=== PATIENT | male | born 1970 | race Caucasian/White ===

== ENCOUNTER 2021-03-04 08:59 | Emergency (ER) | payer MEDICARE, OTHER ==
[~2021-03-04] VITALS: Ht 172 cm; Wt 90.7 kg
[2021-03-04 09:10] VITALS: BP_SYST 93
--- NOTE | 2021-03-04 09:28 | ED Lower Extremity ---
General Chief Complaint: Lower Extremity Stated Complaint: L LEG PAIN Nursing Triage Note: ARRIVED VIA AMB TO ROOM 08. COMPLAINS OF RIGHT LOWER LEG PAIN X3 DAYS. DENIES INJURY Nursing Sepsis Screen: No Definite Risk Source: patient Exam Limitations: no limitations History of Present Illness Date Seen by Provider: March 04, 2021 Time Seen by Provider: 09:22 Initial Comments Patient is a 50-year-old male who presents to the emergency department today with a chief complaint of left knee pain and swelling. Patient states that he has had pain for the last 3 weeks. He denies any traumas, he did not fall twist or step off a curb wrong. He states the pain is periodic and sharp in nature. He states most pronounced when he gets out of bed in the morning. He states he is taking 3 ibuprofen at night periodically for the pain but it does not help very much. He has not seen another physician for this pain. He denies any fev ers or chills. No redness. Again no discrete injuries. He is asking for a wrap for his left knee. All other review of systems reviewed and negative except as stated Onset: other Severity: mild Pain/Injury Location: left knee Modifying Factors: Worse With Movement; Improves With Rest Allergies and Home Medications Allergies Coded Allergies: haloperidol (Verified Allergy, Unknown, 03/04/21) trifluoperazine (Verified Allergy, Unknown, 03/04/21) Patient Home Medication List Home Medication List Reviewed: Yes Review of Systems Constitutional: no symptoms reported Respiratory: no symptoms reported Cardiovascular: no symptoms reported Gastrointestinal: no symptoms reported Genitourinary: no symptoms reported Musculoskeletal: joint pain (left knee), joint swelling (left knee pain) Skin: no symptoms reported All Other Systems Reviewed Negative Unless Noted: Yes Past Txpobks-Ebtpqn-Efjuxf Hx Patient Social History Alcohol Use: Denies Use Smoking Status: Current Everyday Smoker Recent Infectious Disease Expo: No Recent Hopitalizations: No Seasonal Allergies Seasonal Allergies: No Past Medical History Surgeries: Yes (HERNIA) Orthopedic Respiratory: No Cardiac: No Neurological: No Genitourinary: No Gastrointestinal: No Musculoskeletal: No Endocrine: No HEENT: No Cancer: No Psychosocial: Yes Physical Exam Vital Signs Vital Signs - First Documented 03/04/21 09:10 Temp 36.7 Pulse 94 Resp 16 B/P (MAP) 93/ Pulse Ox 96 O2 Delivery Room Air Capillary Refill : Less Than 3 Seconds Height, Weight, BMI Height: '" Weight: lbs. oz. kg; 30.00 BMI Method: General Appearance: WD/WN, no apparent distress Cardiovascular: other (Distal pulses intact) Respiratory: no respiratory distress, no accessory muscle use Hips: bilateral hip non-tender, bilateral hip normal inspection, bilateral hip normal range of motion, bilateral hip no evidence of injury Legs: bilateral leg non-tender, bilateral leg normal inspection, bilateral leg normal range of motion, bilateral leg no evidence of injury Knees: left knee pain (Mild pain noted with palpation of the medial joint line on the left knee. He has a little bit of swelling to the left knee. No appreciable effusion. No crepitance in the knee, no instability.) Ankles: bilateral ankle non-tender, bilateral ankle normal inspection, bilater al ankle normal range of motion, bilateral ankle no evidence of injury Feet: bilateral foot non-tender, bilateral foot normal inspection, bilateral foot normal range of motion, bilateral foot no evidence of injury Neurologic/Psychiatric: alert, normal mood/affect, oriented x 3 Skin: normal color, warm/dry Progress/Results/Core Measures Results/Orders Vital Signs/I&O 03/04/21 09:10 Temp 36.7 Pulse 94 Resp 16 B/P (MAP) 93/ Pulse Ox 96 O2 Delivery Room Air Progress Progress Note : Time: 09:40 Progress Note Left knee is stable, unremarkable. A little bit of left medial joint line tenderness to palpation. Patient is placed in an Gilberto wrap. He is recommended to follow-up with his primary care physician at [facility]. He is advised to take ibuprofen 3 times daily with food for the next week or so. He verbalized understanding. All questions are sought and answered. Patient is stable for discharge. Departure Impression Primary Impression: Left medial knee pain Disposition: 01 HOME, SELF-CARE Condition: Stable Departure-Patient Inst. Decision time for Depature: 09:39 Referrals: [facility] Patient Instructions: Knee Pain (DC) KEVIN ROY MD March 04, 2021 09:28
== END 2021-03-04 09:53 | disposition home or self-care (01) ==
LOC: EDUNIT# 08:59 → ER 09:02
DX: M25.562 Pain in left knee (principal); F17.200 Nicotine dependence, unspecified, uncomplicated
CPT/HCPCS: 99282

== ENCOUNTER 2021-03-08 18:39 | Emergency (ER) | payer MEDICARE ==
[~2021-03-08] VITALS: Ht 172 cm; Wt 90.7 kg
[2021-03-08] MEDS ORDERED: TRIAMCINOLONE ACET (KENALOG-40) 40 MG/ML 1 ML VIAL IA ONE (19:00)
[2021-03-08] MEDS ORDERED: LIDOCAINE 1% INJ 20 ML 20 ML VIAL INJ ONE (19:00)
--- NOTE | 2021-03-08 19:00 | ED Lower Extremity ---
General Chief Complaint: Lower Extremity Stated Complaint: BI LAT LEG PAIN Nursing Triage Note: Pt c/o left leg pain, from above knee radiating down. Reports it gets worse at night. Nursing Sepsis Screen: No Definite Risk Source: patient Exam Limitations: no limitations History of Present Illness Date Seen by Provider: March 08, 2021 Time Seen by Provider: 18:57 Initial Comments To ER with ongoing left knee pain for a few weeks. States its very bad at night after has been off of it for a few hours. No fevers or chills no known injury. Onset: other Severity: moderate Pain/Injury Location: left knee Method of Injury: unknown Modifying Factors: Worse With Movement Allergies and Home Medications Allergies Coded Allergies: haloperidol (Verified Allergy, Unknown, 03/04/21) trifluoperazine (Verified Allergy, Unknown, 03/04/21) Patient Home Medication List Home Medication List Reviewed: Yes Review of Systems Constitutional: see HPI EENTM: see HPI Respiratory: no symptoms reported Cardiovascular: no symptoms reported Genitourinary: no symptoms reported Musculoskeletal: see HPI Skin: no symptoms reported Psychiatric/Neurological: No Symptoms Reported Past Keohsui-Nwoqwq-Aqamjg Hx Patient Social History Alcohol Use: Denies Use Smoking Status: Current Someday Smoker Recent Infectious Disease Expo: No Recent Hopitalizations: No Seasonal Allergies Seasonal Allergies: No Past Medical History Surgeries: Yes (HERNIA) Orthopedic Respiratory: No Cardiac: No Neurological: No Genitourinary: No Gastrointestinal: No Musculoskeletal: No Endocrine: No HEENT: No Cancer: No Psychosocial: Yes Physical Exam Vital Signs Vital Signs - First Documented 03/08/21 18:50 Temp 36.1 Pulse 87 Resp 16 B/P (MAP) 147/87 (107) O2 Delivery Room Air Capillary Refill : Less Than 3 Seconds Height, Weight, BMI Height: '" Weight: lbs. oz. kg; 30.00 BMI Method: General Appearance: WD/WN, no apparent distress Respiratory: no respiratory distress, no accessory muscle use Hips: bilateral hip non-tender, bilateral hip normal inspection, bilateral hip normal range of motion Legs: bilateral leg non-tender, bilateral leg normal inspection, bilateral leg normal range of motion; left leg other (There is some pitting edema from the knee distally to the left leg. He has had an Gilberto wrap on his leg for the past week which seems to have been rather tight, this could have been acting as a tourniquet. However, I will check a D-dimer and CBC.) Knees: bilateral knee non-tender, bilateral knee normal inspection, bilateral knee normal range of motion (The knee has a normal appearance tender around the joint line without palpable effusion) Ankles: bilateral ankle non-tender, bilateral ankle normal inspection, bilateral ankle normal range of motion Feet: bilateral foot non-tender, bilateral foot normal inspection, bilateral foot normal range of motion Skin: normal color, warm/dry Progress/Results/Core Measures Results/Orders Lab Results Laboratory Tests Test 03/08/21 19:21 Range/Units White Blood Count 11.1 H 4.3-11.0 10^3/uL Red Blood Count 3.89 L 4.30-5.52 10^6/uL Hemoglobin 10.4 L 13.3-17.7 g/dL Hematocrit 32 L 40-54 % Mean Corpuscular Volume 82 80-99 fL Mean Corpuscular Hemoglobin 27 25-34 pg Mean Corpuscular Hemoglobin Concent 33 32-36 g/dL Red Cell Distribution Width 17.6 H 10.0-14.5 % Platelet Count 439 H 130-400 10^3/uL Mean Platelet Volume 9.0 9.0-12.2 fL Immature Granulocyte % (Auto) 1 % Neutrophils (%) (Auto) 51 42-75 % Lymphocytes (%) (Auto) 33 12-44 % Monocytes (%) (Auto) 12 0-12 % Eosinophils (%) (Auto) 2 0-10 % Basophils (%) (Auto) 1 0-10 % Neutrophils # (Auto) 5.7 1.8-7.8 10^3/uL Lymphocytes # (Auto) 3.7 1.0-4.0 10^3/uL Monocytes # (Auto) 1.3 H 0.0-1.0 10^3/uL Eosinophils # (Auto) 0.2 0.0-0.3 10^3/uL Basophils # (Auto) 0.1 0.0-0.1 10^3/uL Immature Granulocyte # (Auto) 0.2 H 0.0-0.1 10^3/uL D-Dimer 0.72 H 0.00-0.49 UG/ML My Orders Orders - DOV BRITTON APRN Knee, Left, 3 Views (03/08/21 18:54) Lidocaine 1% Inj 20 Ml (Xylocaine 1% Inj (03/08/21 19:00) Triamcinolone Acetonide Im (Kenalog-40) (03/08/21 19:00) Cbc With Automated Diff (03/08/21 19:22) Fibrin Degradation Products (03/08/21 19:22) Us Venous Lower Ext Lt (03/08/21 19:55) Medications Given in ED Current Medications Medications Dose Ordered Sig/Loy Route Start Time Stop Time Status Last Admin Dose Admin Lidocaine HCl 20 ml ONCE ONCE INJ 03/08/21 19:00 03/08/21 19:01 DC 03/08/21 19:17 20 ML Triamcinolone Acetonide 40 mg ONCE ONCE IA 03/08/21 19:00 03/08/21 19:01 DC 03/08/21 19:17 40 MG Vital Signs/I&O 03/08/21 18:50 Temp 36.1 Pulse 87 Resp 16 B/P (MAP) 147/87 (107) O2 Delivery Room Air Blood Pressure Mean: 107 Diagnostic Imaging Diagonstic Imaging: Xray Comments NAME: LILLIANA SILVERMAN [facility] REC#: [id number] PT STATUS: REG ER : 1970 PHYSICIAN: DOV BRITTON [employer] ADMIT DATE: 03/08/21/ER Draft Date of Exam:03/08/21 US VENOUS LOWER EXT LT PROCEDURE: US left lower extremity venous. TECHNIQUE: Multiple real-time grayscale images were obtained over the left lower extremity in various projections. Additional duplex Doppler and color Doppler images were also obtained. INDICATION: Knee pain. FINDINGS: The left common femoral-femoral popliteal and tibial veins demonstrate normal response to compression, augmentation and Valsalva. There is a fluid collection along the medial aspect of the popliteal fossa measuring 4.7 x 1.3 x 0.6 cm. IMPRESSION: 1. No evidence of deep venous thrombosis in the left lower extremity. 2. Focal fluid collection likely Gillette's cyst or possibly bursitis. Recommend clinical correlation. Dictated on workstation # [id number] Dict: 03/08/212038 Trans: 03/08/212042 [id number] Interpreted by: SHELL LONGORIA MD Electronically signed by: Departure Communication (Admissions) 1917-I did an intra-articular injection using an anteromedial approach of the left knee. This involved 4 mL of 1% lidocaine without epinephrine and 40 mg of intra-articular triamcinolone. Area medial to the patellar tendon was identified at the joint line. This was marked with a skin pen. Cleansed with 3 Betadine swabs then a 22-gauge 1/2 inch needle was inserted. Unable to aspirate any fluid for culture or sampling. Then attached to the syringe with lidocaine and triamcinolone in it. Instilled this medication. Good hemostasis. Impression Primary Impression: Osteoarthritis of knee Disposition: 01 HOME, SELF-CARE Condition: Stable Departure-Patient Inst. Decision time for Depature: 20:45 Referrals: NO,LOCAL PHYSICIAN (PCP/Family) Primary Care Physician Patient Instructions: Bursitis (DC) DOV BRITTON APRN March 08, 2021 19:00
--- NOTE | 2021-03-08 19:08 | Diagnostic Imaging Report ---
INDICATION: Knee pain. EXAMINATION: Three views were obtained. FINDINGS: The alignment is normal. There is no fracture or dislocation. There is no joint effusion. Soft tissues are unremarkable. IMPRESSION: No focal abnormality in the left knee. Dictated by: Dictated on workstation # [id number]
[2021-03-08 19:31] LABS: BASOPHILS # (AUTO) 0.1 10^3/uL (0.0-0.1); BASOPHILS % (AUTO) 1 % (0-10); EOSINOPHILS # (AUTO) 0.2 10^3/uL (0.0-0.3); EOSINOPHILS % (AUTO) 2 % (0-10); HEMATOCRIT 32 % (40-54); HEMOGLOBIN 10.4 g/dL (13.3-17.7); LYMPHOCYTES # (AUTO) 3.7 10^3/uL (1.0-4.0); LYMPHOCYTES % (AUTO) 33 % (12-44); MEAN CORPUSCULAR HEMOGLOBIN 27 pg (25-34); MEAN CORPUSCULAR HGB CONC 33 g/dL (32-36); MEAN CORPUSCULAR VOLUME 82 fL (80-99); MONOCYTES # (AUTO) 1.3 10^3/uL (0.0-1.0); MONOCYTES % (AUTO) 12 % (0-12); NEUTROPHILS # (AUTO) 5.7 10^3/uL (1.8-7.8); NEUTROPHILS % (AUTO) 51 % (42-75); PLATELET COUNT 439 10^3/uL (130-400); WHITE BLOOD COUNT 11.1 10^3/uL (4.3-11.0)
--- NOTE | 2021-03-08 20:44 | Diagnostic Imaging Report ---
PROCEDURE: US left lower extremity venous. TECHNIQUE: Multiple real-time grayscale images were obtained over the left lower extremity in various projections. Additional duplex Doppler and color Doppler images were also obtained. INDICATION: Knee pain. FINDINGS: The left common femoral-femoral popliteal and tibial veins demonstrate normal response to compression, augmentation and Valsalva. There is a fluid collection along the medial aspect of the popliteal fossa measuring 4.7 x 1.3 x 0.6 cm. IMPRESSION: 1. No evidence of deep venous thrombosis in the left lower extremity. 2. Focal fluid collection likely Gillette's cyst or possibly bursitis. Recommend clinical correlation. Dictated by: Dictated on workstation # [id number]
[2021-03-08 20:52] VITALS: BP 145/85
== END 2021-03-08 20:52 | disposition home or self-care (01) ==
LOC: EDUNIT# 18:39 → ER 18:41
DX: M17.12 Unilateral primary osteoarthritis, left knee (principal); F17.200 Nicotine dependence, unspecified, uncomplicated
CPT/HCPCS: 36415; 73562; 85025; 85379

== ENCOUNTER 2021-03-10 12:17 | Emergency (ER) | payer MEDICARE ==
[~2021-03-10] VITALS: Ht 172 cm; Wt 91.0 kg
[2021-03-10 12:30] VITALS: BP 139/89
[2021-03-10] MEDS ORDERED: ACHD5005 PO (12:39)
--- NOTE | 2021-03-10 12:40 | ED Lower Extremity ---
General Chief Complaint: Lower Extremity Stated Complaint: BURSITIS Source: patient Exam Limitations: no limitations History of Present Illness Date Seen by Provider: March 10, 2021 Time Seen by Provider: 12:35 Initial Comments To ER with ongoing left medial knee pain. He was here a few days ago and received an intra-articular injection of kenalog and lidocaine Onset: just prior to arrival Severity: moderate Pain/Injury Location: left knee Method of Injury: unknown Modifying Factors: Worse With Movement Allergies and Home Medications Allergies Coded Allergies: haloperidol (Verified Allergy, Unknown, 03/04/21) trifluoperazine (Verified Allergy, Unknown, 03/04/21) Home Medications Hydrocodone/Acetaminophen 1 Each Tablet, 1 TAB PO Q4H PRN for PAIN-MODERATE (5- 7) Prescribed by: DOV BRITTON on 03/10/21 1240 Patient Home Medication List Home Medication List Reviewed: Yes Review of Systems Constitutional: see HPI EENTM: see HPI Respiratory: no symptoms reported Cardiovascular: no symptoms reported Genitourinary: no symptoms reported Musculoskeletal: see HPI Skin: no symptoms reported Psychiatric/Neurological: No Symptoms Reported Past Nxdmxrx-Azetmf-Ptnyjk Hx Patient Social History Recent Hopitalizations: No Seasonal Allergies Seasonal Allergies: No Past Medical History Surgeries: Yes (HERNIA) Orthopedic Respiratory: No Cardiac: No Neurological: No Genitourinary: No Gastrointestinal: No Musculoskeletal: No Endocrine: No HEENT: No Cancer: No Psychosocial: Yes Physical Exam Vital Signs Vital Signs - First Documented 03/10/21 12:30 Temp 35.9 Pulse 101 Resp 18 B/P (MAP) 139/89 (106) Pulse Ox 94 Capillary Refill : Height, Weight, BMI Height: '" Weight: lbs. oz. kg; 30.00 BMI Method: General Appearance: WD/WN, no apparent distress Gastrointestinal: normal bowel sounds, non tender, soft Hips: bilateral hip non-tender, bilateral hip normal inspection, bilateral hip normal range of motion Legs: bilateral leg non-tender, bilateral leg normal inspection, bilateral leg normal range of motion Knees: left knee pain, left knee swelling (Erythema no ecchymosis no palpable effusion. Tenderness to palpation of the anteromedial proximal tibia) Ankles: bilateral ankle non-tender, bilateral ankle normal inspection, bilateral ankle normal range of motion Neurologic/Psychiatric: alert, normal mood/affect, oriented x 3 Skin: normal color, warm/dry Progress/Results/Core Measures Results/Orders My Orders Orders - DOV BRITTON APRN Bupivacaine 0.5% Injection (Sensorcaine (03/10/21 12:45) Vital Signs/I&O 03/10/21 12:30 Temp 35.9 Pulse 101 Resp 18 B/P (MAP) 139/89 (106) Pulse Ox 94 Departure Impression Primary Impression: Pes anserinus bursitis of left knee Disposition: HOME, SELF-CARE Condition: Stable Departure-Patient Inst. Decision time for Depature: 12:39 Referrals: NO,LOCAL PHYSICIAN (PCP) Primary Care Physician VERONICA FARNSWORTH MD, MICHAEL P MD Patient Instructions: Pes Anserine Bursitis (DC) Add. Discharge Instructions: 1. Follow-up with 1 the orthopedic surgeons. Call one of them tomorrow morning to make an appointment to be seen. All discharge instructions reviewed with patient and/or family. Voiced understanding. Scripts Hydrocodone/Acetaminophen (Hydrocodone-Acetamin 5-325 mg) 1 Each Tablet 1 TAB PO Q4H PRN for PAIN-MODERATE (5-7), #10 TAB Prov: DOV BRITTON APRN 03/10/21 DOV BRITTON APRN March 10, 2021 12:40
[2021-03-10] MEDS ORDERED: BUPIVACAINE 0.5% 30 ML (SENSORCAINE) VIAL INJ ONE (12:45)
== END 2021-03-10 12:48 | disposition home or self-care (01) ==
LOC: EDUNIT# 12:17 → ER 12:18
DX: M71.562 Other bursitis, not elsewhere classified, left knee (principal)
CPT/HCPCS: 99283

== ENCOUNTER 2021-04-10 08:54 | Emergency (ER) | payer MEDICARE ==
[~2021-04-10] VITALS: Ht 172.2 cm; Wt 90.9 kg
[~2021-04-10 08:54] MED LIST: ACHD5005 PO
--- NOTE | 2021-04-10 09:13 | ED Cough/URI ---
General Chief Complaint: General Problems/Pain Stated Complaint: RLQ PAIN Source: patient Exam Limitations: no limitations History of Present Illness Date Seen by Provider: Apr 10, 2021 Time Seen by Provider: 08:02 Initial Comments Here with report of right sided chest pain with cough. Has had the cough for several days to a few weeks. Does smoke and knows he needs to quit. Has had previous Covid infection as well as vaccination. Concerned today because his sister told him he needed to see a doctor. He follows with [facility] but does not have an appointment until later this month. Denies nausea, vomiting, fever, chills, sore throat or runny nose. Complaint is related to cough and pain associated with that. Has been prescribed inhaler in the past but does not have one currently. Timing/Duration: week, getting worse Severity/Quality: moderate Prior Episodes/Possible Cause: occasional episodes Associated Symptoms: cough Allergies and Home Medications Allergies Coded Allergies: haloperidol (Verified Allergy, Unknown, 03/04/21) trifluoperazine (Verified Allergy, Unknown, 03/04/21) Home Medications Hydrocodone/Acetaminophen 1 Each Tablet, 1 TAB PO Q4H PRN for PAIN-MODERATE (5- 7) Prescribed by: DOV BRITTON on 03/10/21 1240 Patient Home Medication List Home Medication List Reviewed: Yes Review of Systems Review of Systems Constitutional: see HPI EENTM: No nose congestion, No throat pain Respiratory: cough; No short of breath Cardiovascular: No edema, No palpitations Gastrointestinal: No nausea, No vomiting All Other Systems Reviewed Negative Unless Noted: Yes Past Kpxpewu-Wnodiu-Ztrtpz Hx Patient Social History Tobacco Use?: Yes Tobacco type used: Cigarettes Smoking Status: Current Everyday Smoker Substance use?: No Pt feels they are or have been: No Immunizations Up To Date Influenza Vaccine Up-to-Date: No; Not Current First/Initial COVID19 Vaccinat: january Second COVID19 Vaccination Carl: UNSURE Seasonal Allergies Seasonal Allergies: No Past Medical History Surgeries: Yes (HERNIA) Orthopedic Respiratory: No Cardiac: No Neurological: No Genitourinary: No Gastrointestinal: No Musculoskeletal: No Endocrine: No HEENT: No Cancer: No Psychosocial: Yes Family Medical History Reviewed Nursing Family Hx Physical Exam Vital Signs - First Documented 04/10/21 08:58 Temp 36.0 Pulse 84 Resp 18 B/P (MAP) 131/81 (98) Pulse Ox 94 O2 Delivery Room Air Capillary Refill : Height: '" Weight: lbs. oz. kg; 30.00 BMI Method: General Appearance: WD/WN, no apparent distress HEENT: PERRL/EOMI, pharynx normal Neck: full range of motion, supple Respiratory: no respiratory distress, no accessory muscle use, crackles (Right base) Cardiovascular: regular rate, rhythm, no murmur Gastrointestinal: non tender, soft Neurologic/Psychiatric: alert, oriented x 3 Skin: normal color, warm/dry Progress/Results/Core Measures Suspected Sepsis SIRS Temperature: Pulse: Respiratory Rate: Laboratory Tests 04/10/21 09:56: White Blood Count 10.7 Blood Pressure / Mean: Laboratory Tests 04/10/21 09:56: Creatinine 0.79, Platelet Count 365, Total Bilirubin 0.3 Results/Orders Lab Results Laboratory Tests Test 04/10/21 09:56 Range/Units White Blood Count 10.7 4.3-11.0 10^3/uL Red Blood Count 4.50 4.30-5.52 10^6/uL Hemoglobin 11.9 L 13.3-17.7 g/dL Hematocrit 37 L 40-54 % Mean Corpuscular Volume 81 80-99 fL Mean Corpuscular Hemoglobin 26 25-34 pg Mean Corpuscular Hemoglobin Concent 33 32-36 g/dL Red Cell Distribution Width 17.9 H 10.0-14.5 % Platelet Count 365 130-400 10^3/uL Mean Platelet Volume 9.4 9.0-12.2 fL Immature Granulocyte % (Auto) 1 % Neutrophils (%) (Auto) 64 42-75 % Lymphocytes (%) (Auto) 27 12-44 % Monocytes (%) (Auto) 7 0-12 % Eosinophils (%) (Auto) 1 0-10 % Basophils (%) (Auto) 0 0-10 % Neutrophils # (Auto) 6.8 1.8-7.8 10^3/uL Lymphocytes # (Auto) 2.8 1.0-4.0 10^3/uL Monocytes # (Auto) 0.7 0.0-1.0 10^3/uL Eosinophils # (Auto) 0.1 0.0-0.3 10^3/uL Basophils # (Auto) 0.0 0.0-0.1 10^3/uL Immature Granulocyte # (Auto) 0.2 H 0.0-0.1 10^3/uL Sodium Level 130 L 135-145 MMOL/L Potassium Level 4.8 3.6-5.0 MMOL/L Chloride Level 94 L 98-107 MMOL/L Carbon Dioxide Level 26 21-32 MMOL/L Anion Gap 10 5-14 MMOL/L Blood Urea Nitrogen 8 7-18 MG/DL Creatinine 0.79 0.60-1.30 MG/DL Estimat Glomerular Filtration Rate > 60 BUN/Creatinine Ratio 10 Glucose Level 93 70-105 MG/DL Calcium Level 9.6 8.5-10.1 MG/DL Corrected Calcium 9.8 8.5-10.1 MG/DL Total Bilirubin 0.3 0.1-1.0 MG/DL Aspartate Amino Transf (AST/SGOT) 20 5-34 U/L Alanine Aminotransferase (ALT/SGPT) 7 0-55 U/L Alkaline Phosphatase 59 40-136 U/L C-Reactive Protein High Sensitivity 1.23 H 0.00-0.50 MG/DL Total Protein 8.8 H 6.4-8.2 GM/DL Albumin 3.8 3.2-4.5 GM/DL My Orders Orders - SHAHRAM FIELDS MD Chest Pa/Lat (2 View) (04/10/21 09:09) Ct Chest W (04/10/21 09:54) Ed Iv/Invasive Line Start (04/10/21 09:54) Cbc With Automated Diff (04/10/21 09:54) Comprehensive Metabolic Panel (04/10/21 09:54) Hs C Reactive Protein (04/10/21 09:54) Ns Iv 1000 Ml (Sodium Chloride 0.9%) (04/10/21 09:54) Ed Iv/Invasive Line Start (04/10/21 09:54) Iohexol Injection (Omnipaque 350 Mg/Ml 1 (04/10/21 10:15) Received Contrast (Hold Metformin- Contr (04/10/21 10:15) Ns (Ivpb) (Sodium Chloride 0.9% Ivpb Bag (04/10/21 10:15) Medications Given in ED Current Medications Medications Dose Ordered Sig/Loy Route Start Time Stop Time Status Last Admin Dose Admin Iohexol 100 ml ONCE ONCE IV 04/10/21 10:15 04/10/21 10:16 DC 7/1/21 10:44 74 ML Sodium Chloride 100 ml ONCE ONCE IV 04/10/21 10:15 04/10/21 10:16 DC 04/10/21 10:44 80 ML Vital Signs/I&O 04/10/21 08:58 Temp 36.0 Pulse 84 Resp 18 B/P (MAP) 131/81 (98) Pulse Ox 94 O2 Delivery Room Air Capillary Refill : Progress Note : Progress Note Seen in wound evaluated. Two-view chest x-ray ordered. Monitor patient. 0950: Chest x-ray results noted with recommendation for CT scan with contrast. This will be ordered. Monitor patient. 1120: CT scan shows bullous emphysema but no infiltrate or neoplasm. This was discussed with the patient. Overall he is doing well. Discharged home with return precautions. Patient verbalized understanding instructions and agreement with plan. Diagnostic Imaging Diagonstic Imaging: Xray Plain Films/CT/US/NM/MRI: chest Comments [facility] [place] [place], [place] NAME: LILLIANA SILVERMAN [facility] REC#: [id number] PT STATUS: REG ER : 1970 PHYSICIAN: SHAHRAM FIELDS MD ADMIT DATE: 04/10/21/ER Draft Date of Exam:04/10/21 CHEST PA/LAT (2 VIEW) Clinical indication: Patient cough and right rib pain. Patient's history COVID 4 months ago. Exam: Chest x-ray PA and lateral views. Comparisons: None. Findings: There is amorphous and curvilinear opacities involving both lung apices with the appearance of possible cystic changes as well. There is amorphous airspace opacities involving the medial right basilar region and left lung base region. There is no pleural effusion or pneumothorax. Pulmonary vasculature and cardiac silhouette is within normal limits. Bones show no significant abnormality. Impression: 1: There are curvilinear opacities involving both lung apices with possible cystic changes in the region as well. These findings may be related to emphysematous lung changes from prior infectious or inflammatory process. Active disease in both lung apices can't be completely excluded. CT scan of the chest with contrast is suggested for further evaluation. 2: There are mild airspace opacities involving the medial right lung base and left lung base region which may represent atelectasis and/or infiltrates. Dictated on workstation # [id number] Dict: 04/10/21 0929 Trans: 04/10/21 0939 [facility] [id number] Interpreted by: AMOS LARKIN MD Electronically signed by: Alethea Imaging: CT Plain Films/CT/US/NM/MRI: chest Comments [facility] [place] NAME: LILLIANA SILVERMAN [facility] REC#: [id number] PT STATUS: REG ER : 1970 PHYSICIAN: SHAHRAM FIELDS MD ADMIT DATE: 04/10/21/ER Draft Date of Exam:04/10/[address] CHEST W TECHNIQUE: Multiple contiguous axial images were obtained through the chest with the use of intravenous contrast. All CT scans use one or more of the following dose optimizing techniques: automated exposure control, MA and/or KvP adjustment based on a patient size and exam type, or iterative reconstruction. INDICATION: Right-sided rib pain and cough. COMPARISON: Chest radiograph of 04/10/2021. FINDINGS: Lungs and airway: No endoluminal nodule within the trachea. Severe paraseptal emphysema is present in the lung apices, resulting in large apical bulla. The largest on the right measures approximately 7.5 cm in length. No consolidation or centrilobular micronodules. Subpleural thickening in the left lung apex is most compatible with scar. Pleura: No pleural effusion or pneumothorax. Heart and mediastinum: Thyroid is normal. No supraclavicular or axillary lymphadenopathy. No mediastinal or hilar lymphadenopathy. The heart is normal in size without pericardial effusion. Normal-caliber thoracic aorta. No central pulmonary emboli. Upper abdomen: No acute abnormality in the upper abdomen. Musculoskeletal: Normal regional skeleton. Specifically, there are no acute or healing right-sided rib fractures. IMPRESSION: 1. No pneumonia or features of intrathoracic neoplasm. 2. Severe paraseptal emphysema with large bulla in the lung apices. These account for the radiographic abnormality. 3. The opacities in the middle lobe on radiograph correspond to prominent mediastinal fat. Dictated on workstation # [id number] Dict: 04/10/21 1051 Trans: 04/10/21 1101 [id number] Interpreted by: SABINA DILLON MD Electronically signed by: Departure Impression Primary Impression: COPD exacerbation Disposition: HOME, SELF-CARE Condition: Improved Departure-Patient Inst. Decision time for Depature: 11:20 Referrals: NO,LOCAL PHYSICIAN (PCP/Family) Primary Care Physician Patient Instructions: COPD Exacerbation, Adult ED, Chronic Pain (DC) Add. Discharge Instructions: All discharge instructions reviewed with patient and/or family. Voiced understanding. Take medications as directed. Follow-up with your doctor as scheduled this month. Do not miss that appointment. You seriously need to consider quitting smoking as your lungs show damage that will only get worse. Continue other home medications as previously prescribed. Return for worse pain, fever, vomiting, w eakness, breathing problems or other concerns as needed. Copy Copies To 1: BEATRIZ ZHU TIMOTHY D MD Apr 10, 2021 09:13
--- NOTE | 2021-04-10 09:39 | Diagnostic Imaging Report ---
Clinical indication: Patient cough and right rib pain. Patient's history COVID 4 months ago. Exam: Chest x-ray PA and lateral views. Comparisons: None. Findings: There is amorphous and curvilinear opacities involving both lung apices with the appearance of possible cystic changes as well. There is amorphous airspace opacities involving the medial right basilar region and left lung base region. There is no pleural effusion or pneumothorax. Pulmonary vasculature and cardiac silhouette is within normal limits. Bones show no significant abnormality. Impression: 1: There are curvilinear opacities involving both lung apices with possible cystic changes in the region as well. These findings may be related to emphysematous lung changes from prior infectious or inflammatory process. Active disease in both lung apices can't be completely excluded. CT scan of the chest with contrast is suggested for further evaluation. 2: There are mild airspace opacities involving the medial right lung base and left lung base region which may represent atelectasis and/or infiltrates. Dictated by: Dictated on workstation # [id number]
[2021-04-10] MEDS ORDERED: NS IV 1000 ML 1,000 ML IV STA (09:54)
[2021-04-10 10:06] LABS: BASOPHILS % (AUTO) 0 % (0-10); EOSINOPHILS # (AUTO) 0.1 10^3/uL (0.0-0.3); EOSINOPHILS % (AUTO) 1 % (0-10); HEMATOCRIT 37 % (40-54); HEMOGLOBIN 11.9 g/dL (13.3-17.7); LYMPHOCYTES # (AUTO) 2.8 10^3/uL (1.0-4.0); LYMPHOCYTES % (AUTO) 27 % (12-44); MEAN CORPUSCULAR HEMOGLOBIN 26 pg (25-34); MEAN CORPUSCULAR HGB CONC 33 g/dL (32-36); MEAN CORPUSCULAR VOLUME 81 fL (80-99); MEAN PLATELET VOLUME 9.4 fL (9.0-12.2); MONOCYTES # (AUTO) 0.7 10^3/uL (0.0-1.0); MONOCYTES % (AUTO) 7 % (0-12); NEUTROPHILS # (AUTO) 6.8 10^3/uL (1.8-7.8); NEUTROPHILS % (AUTO) 64 % (42-75); PLATELET COUNT 365 10^3/uL (130-400); WHITE BLOOD COUNT 10.7 10^3/uL (4.3-11.0)
[2021-04-10] MEDS ORDERED: NS 100 ML (IVPB) BAG IV ONE (10:15)
[2021-04-10] MEDS ORDERED: IOHEXOL 350 MG/ML 100 ML (OMNIPAQUE 350) VIAL IV ONE (10:15)
[2021-04-10] MEDS ORDERED: HOLD METFORMIN - RECEIVED CONTRAST 20 ML VIAL IV SCH (10:15)
[2021-04-10 10:21] LABS: ALBUMIN 3.8 GM/DL (3.2-4.5); CHLORIDE 94 MMOL/L (98-107); POTASSIUM 4.8 MMOL/L (3.6-5.0); SODIUM 130 MMOL/L (135-145)
[2021-04-10 10:22] LABS: CALCIUM 9.6 MG/DL (8.5-10.1)
[2021-04-10 10:24] LABS: GLUCOSE 93 MG/DL (70-105); TOTAL PROTEIN 8.8 GM/DL (6.4-8.2)
[2021-04-10 10:25] LABS: BILIRUBIN,TOTAL 0.3 MG/DL (0.1-1.0); CARBON DIOXIDE 26 MMOL/L (21-32)
[2021-04-10 10:27] LABS: ALKALINE PHOSPHATASE 59 U/L (40-136); CREATININE SERUM 0.79 MG/DL (0.60-1.30); GFR ESTIMATED > 60
[2021-04-10 10:28] LABS: BUN/CREATININE RATIO 10
[2021-04-10 10:30] LABS: ALANINE AMINOTRANSFERASE 7 U/L (0-55)
--- NOTE | 2021-04-10 11:01 | Diagnostic Imaging Report ---
CT CHEST W TECHNIQUE: Multiple contiguous axial images were obtained through the chest with the use of intravenous contrast. All CT scans use one or more of the following dose optimizing techniques: automated exposure control, MA and/or KvP adjustment based on a patient size and exam type, or iterative reconstruction. INDICATION: Right-sided rib pain and cough. COMPARISON: Chest radiograph of 04/10/2021. FINDINGS: Lungs and airway: No endoluminal nodule within the trachea. Severe paraseptal emphysema is present in the lung apices, resulting in large apical bulla. The largest on the right measures approximately 7.5 cm in length. No consolidation or centrilobular micronodules. Subpleural thickening in the left lung apex is most compatible with scar. Pleura: No pleural effusion or pneumothorax. Heart and mediastinum: Thyroid is normal. No supraclavicular or axillary lymphadenopathy. No mediastinal or hilar lymphadenopathy. The heart is normal in size without pericardial effusion. Normal-caliber thoracic aorta. No central pulmonary emboli. Upper abdomen: No acute abnormality in the upper abdomen. Musculoskeletal: Normal regional skeleton. Specifically, there are no acute or healing right-sided rib fractures. IMPRESSION: 1. No pneumonia or features of intrathoracic neoplasm. 2. Severe paraseptal emphysema with large bulla in the lung apices. These account for the radiographic abnormality. 3. The opacities in the middle lobe on radiograph correspond to prominent mediastinal fat. Dictated by: Dictated on workstation # [id number]
[2021-04-10 11:31] VITALS: BP 108/68
== END 2021-04-10 11:36 | disposition home or self-care (01) ==
LOC: EDUNIT# 08:54 → ER 08:56
DX: J44.1 Chronic obstructive pulmonary disease with (acute) exacerbation (principal); F17.210 Nicotine dependence, cigarettes, uncomplicated; Z86.16 Personal history of COVID-19
CPT/HCPCS: 36415; 71046; 71260; 80053; 85025; 86141

== ENCOUNTER 2021-05-05 09:41 | Emergency (ER) | payer MEDICARE ==
[~2021-05-05] VITALS: Ht 172.7 cm; Wt 95.0 kg
[2021-05-05 10:31] LABS: BASOPHILS % (AUTO) 0 % (0-10); EOSINOPHILS # (AUTO) 0.1 10^3/uL (0.0-0.3); EOSINOPHILS % (AUTO) 1 % (0-10); HEMATOCRIT 41 % (40-54); HEMOGLOBIN 12.7 g/dL (13.3-17.7); LYMPHOCYTES # (AUTO) 1.7 10^3/uL (1.0-4.0); LYMPHOCYTES % (AUTO) 18 % (12-44); MEAN CORPUSCULAR HEMOGLOBIN 26 pg (25-34); MEAN CORPUSCULAR HGB CONC 31 g/dL (32-36); MEAN CORPUSCULAR VOLUME 84 fL (80-99); MEAN PLATELET VOLUME 9.3 fL (9.0-12.2); MONOCYTES # (AUTO) 0.8 10^3/uL (0.0-1.0); MONOCYTES % (AUTO) 8 % (0-12); NEUTROPHILS % (AUTO) 73 % (42-75); PLATELET COUNT 406 10^3/uL (130-400); WHITE BLOOD COUNT 9.7 10^3/uL (4.3-11.0)
[2021-05-05 10:49] LABS: ALBUMIN 4.3 GM/DL (3.2-4.5); POTASSIUM 4.5 MMOL/L (3.6-5.0)
[2021-05-05 10:50] LABS: CALCIUM 9.9 MG/DL (8.5-10.1)
[2021-05-05 10:51] LABS: TOTAL PROTEIN 9.1 GM/DL (6.4-8.2)
[2021-05-05 10:53] LABS: BILIRUBIN,TOTAL 0.6 MG/DL (0.1-1.0)
[2021-05-05 10:55] LABS: CREATININE SERUM 0.71 MG/DL (0.60-1.30)
--- NOTE | 2021-05-05 11:09 | ED General ---
General Chief Complaint: General Problems/Pain Stated Complaint: LACK OF SLEEP Nursing Triage Note: Pt ambulatory into ER with complaint of fatigue. Pt states that he hasn't been taking his sleep aid medication so he isnt sleeping. Asked patient what the ER can do for him, and he states that he wants a HIV test and blood work to see if covid is in his blood. He states that the nose test doesn't work for him it hurts. PT has no other complaints. Source of Information: Patient Exam Limitations: No Limitations History of Present Illness Date Seen by Provider: May 05, 2021 Time Seen by Provider: 10:10 Initial Comments Here with report of general concerns about health. He is on a lot of things to control his mental health disorder. He was off his meds for a month but has restarted them recently. He is just concerned that he has something in his blood. He did apparently asked the nurse for HIV test and test to see if he is ever had Covid. We did talk about that he knows that he will have to do those through his primary care physician. States he is eating and drinking okay. Denies nausea, vomiting or diarrhea or other concerns. Timing/Duration: 3-4 Days Severity: Mild Associated Systoms: Denies Symptoms Allergies and Home Medications Allergies Coded Allergies: haloperidol (Verified Allergy, Unknown, 03/04/21) trifluoperazine (Verified Allergy, Unknown, 03/04/21) Home Medications Hydrocodone/Acetaminophen 1 Each Tablet, 1 TAB PO Q4H PRN for PAIN-MODERATE (5- 7) Prescribed by: DOV BRITTON on 03/10/21 1240 Patient Home Medication List Home Medication List Reviewed: Yes Review of Systems Review of Systems Constitutional: see HPI; No chills, No fever EENTM: no symptoms reported Respiratory: No cough, No short of breath Cardiovascular: No chest pain, No edema Gastrointestinal: No abdominal pain, No nausea, No vomiting Genitourinary: no symptoms reported Musculoskeletal: no symptoms reported Skin: No change in color, No lesions Psychiatric/Neurological: Anxiety All Other Systems Reviewed Negative Unless Noted: Yes Past Ndknjwp-Lkoqoj-Sqoygt Hx Patient Social History Tobacco Use?: Yes Use of E-Cig and/or Vaping dev: No Substance use?: No Alcohol Use?: No Pt feels they are or have been: No Immunizations Up To Date Influenza Vaccine Up-to-Date: No; Not Current Seasonal Allergies Seasonal Allergies: No Past Medical History Surgeries: Yes (HERNIA) Orthopedic Respiratory: No Cardiac: No Neurological: No Genitourinary: No Gastrointestinal: No Musculoskeletal: No Endocrine: No HEENT: No Cancer: No Psychosocial: Yes Family Medical History Reviewed Nursing Family Hx Physical Exam Vital Signs Vital Signs - First Documented 05/05/21 10:01 Temp 36.3 Pulse 90 Resp 16 B/P (MAP) 152/92 (112) Pulse Ox 95 O2 Delivery Room Air Capillary Refill : Less Than 3 Seconds Height, Weight, BMI Height: '" Weight: lbs. oz. kg; 31.00 BMI Method: General Appearance: No Apparent Distress, WD/WN HEENT: PERRL/EOMI, TMs Normal, Pharynx Normal Neck: Non Tender, Supple Respiratory: Lungs Clear, Normal Breath Sounds Cardiovascular: Regular Rate, Rhythm, No Murmur Gastrointestinal: Non Tender, Soft Back: Normal Inspection, No CVA Tenderness, No Vertebral Tenderness Extremity: Normal Range of Motion, Non Tender Neurologic/Psychiatric: Alert, Oriented x3 Skin: Normal Color, Warm/Dry Progress/Results/Core Measures Suspected Sepsis SIRS Temperature: Pulse: 90 Respiratory Rate: 16 Laboratory Tests 05/05/21 10:25: White Blood Count 9.7 Blood Pressure 152 /92 Mean: 112 Laboratory Tests 05/05/21 10:25: Creatinine 0.71, Platelet Count 406H, Total Bilirubin 0.6 Results/Orders Lab Results Laboratory Tests Test 05/05/21 10:25 Range/Units White Blood Count 9.7 4.3-11.0 10^3/uL Red Blood Count 4.86 4.30-5.52 10^6/uL Hemoglobin 12.7 L 13.3-17.7 g/dL Hematocrit 41 40-54 % Mean Corpuscular Volume 84 80-99 fL Mean Corpuscular Hemoglobin 26 25-34 pg Mean Corpuscular Hemoglobin Concent 31 L 32-36 g/dL Red Cell Distribution Width 18.1 H 10.0-14.5 % Platelet Count 406 H 130-400 10^3/uL Mean Platelet Volume 9.3 9.0-12.2 fL Immature Granulocyte % (Auto) 1 % Neutrophils (%) (Auto) 73 42-75 % Lymphocytes (%) (Auto) 18 12-44 % Monocytes (%) (Auto) 8 0-12 % Eosinophils (%) (Auto) 1 0-10 % Basophils (%) (Auto) 0 0-10 % Neutrophils # (Auto) 7.0 1.8-7.8 10^3/uL Lymphocytes # (Auto) 1.7 1.0-4.0 10^3/uL Monocytes # (Auto) 0.8 0.0-1.0 10^3/uL Eosinophils # (Auto) 0.1 0.0-0.3 10^3/uL Basophils # (Auto) 0.0 0.0-0.1 10^3/uL Immature Granulocyte # (Auto) 0.1 0.0-0.1 10^3/uL Sodium Level 138 135-145 MMOL/L Potassium Level 4.5 3.6-5.0 MMOL/L Chloride Level 101 98-107 MMOL/L Carbon Dioxide Level 22 21-32 MMOL/L Anion Gap 15 H 5-14 MMOL/L Blood Urea Nitrogen 8 7-18 MG/DL Creatinine 0.71 0.60-1.30 MG/DL Estimat Glomerular Filtration Rate 117 BUN/Creatinine Ratio 11 Glucose Level 106 H 70-105 MG/DL Calcium Level 9.9 8.5-10.1 MG/DL Corrected Calcium 9.7 8.5-10.1 MG/DL Total Bilirubin 0.6 0.1-1.0 MG/DL Aspartate Amino Transf (AST/SGOT) 26 5-34 U/L Alanine Aminotransferase (ALT/SGPT) 14 0-55 U/L Alkaline Phosphatase 77 40-136 U/L Total Protein 9.1 H 6.4-8.2 GM/DL Albumin 4.3 3.2-4.5 GM/DL My Orders Orders - SHAHRAM FIELDS MD Cbc With Automated Diff (05/05/21 10:19) Comprehensive Metabolic Panel (05/05/21 10:19) Vital Signs/I&O 05/05/21 10:01 Temp 36.3 Pulse 90 Resp 16 B/P (MAP) 152/92 (112) Pulse Ox 95 O2 Delivery Room Air Capillary Refill : Less Than 3 Seconds Blood Pressure Mean: 112 Progress Note : Progress Note Seen and evaluated. We will go ahead and check CBC and CMP given his restarting meds. Monitor patient. 1120: No acute findings. Discharged home with return p recautions. Patient verbalized understanding of instructions and agreement with plan. Departure Impression Primary Impression: Anxiety about health Disposition: HOME, SELF-CARE Condition: Stable Departure-Patient Inst. Decision time for Depature: 11:20 Referrals: NO,LOCAL PHYSICIAN (PCP/Family) Primary Care Physician Patient Instructions: Anxiety, Adult ED Add. Discharge Instructions: All discharge instructions reviewed with patient and/or family. Voiced understanding. Follow-up with your medical doctor for recheck and further evaluation. Stay in contact with your mental health doctor for further evaluation as needed. Take your medications as prescribed. Return for other concerns as needed. If you would like HIV test and or Covid antibody test, you will need to do that through your primary care doctor. Copy Copies To 1: BEATRIZ ZHU TIMOTHY D MD May 05, 2021 11:09
[2021-05-05 11:29] VITALS: BP 146/90
== END 2021-05-05 11:29 | disposition home or self-care (01) ==
LOC: EDUNIT# 09:41 → ER 09:44
DX: F41.1 Generalized anxiety disorder (principal)
CPT/HCPCS: 36415; 80053; 85025; 99281

== ENCOUNTER 2021-05-27 17:12 | Emergency (ER) | payer MEDICARE ==
[~2021-05-27] VITALS: Ht 172.7 cm; Wt 90.7 kg
--- NOTE | 2021-05-27 18:36 | Diagnostic Imaging Report ---
INDICATION: Left knee swelling. TIME OF EXAM: 6:32 PM 3 views of the left knee show normal alignment. Joint spaces are fairly well maintained. Articular surfaces are smooth. No fracture, dislocation or effusion is seen. IMPRESSION: No acute bony abnormality is detected. Dictated by: Dictated on workstation # [id number]
--- NOTE | 2021-05-27 19:12 | ED Lower Extremity ---
General Chief Complaint: Lower Extremity Stated Complaint: L LEG PAIN Nursing Triage Note: PT AMB TO TRIAGE WITH COMPLAINT OF LEFT KNEE PAIN. DENIES INJURY. STATES HAS BEEN ONGOING FOR A WHILE. History of Present Illness Date Seen by Provider: May 27, 2021 Time Seen by Provider: 17:40 Initial Comments 51-year-old male presents for left knee pain that is been present for approximately 3 years. He denies any new onset of injuries. He reports it hurts unless he uses an Gilberto wrap. He has had an injection in the knee approximately 7 months ago which she reports did improve his symptoms. He denies having a primary care provider or seeing orthopedics. Pain/Injury Location: left thigh Method of Injury: unknown Allergies and Home Medications Allergies Coded Allergies: haloperidol (Verified Allergy, Unknown, 03/04/21) trifluoperazine (Verified Allergy, Unknown, 03/04/21) Home Medications Hydrocodone/Acetaminophen 1 Each Tablet, 1 TAB PO Q4H PRN for PAIN-MODERATE (5- 7) Prescribed by: DOV BRITTON on 03/10/21 1240 Naproxen 500 Mg Tablet, 500 MG PO BID Prescribed by: ANIL MEJIAS on 05/27/21 1923 Patient Home Medication List Home Medication List Reviewed: Yes Review of Systems Constitutional: no symptoms reported, see HPI Musculoskeletal: see HPI, joint pain (Left knee) All Other Systems Reviewed Negative Unless Noted: Yes Past Gkilrmd-Solzdd-Jbeezm Hx Patient Social History Tobacco Use?: Yes Tobacco type used: Cigarettes Smoking Status: Current Everyday Smoker Smokeless Tobacco Frequency: Current Everyday User Substance use?: No Alcohol Use?: No Pt feels they are or have been: No Seasonal Allergies Seasonal Allergies: No Past Medical History Surgeries: Yes (HERNIA) Orthopedic Respiratory: No Cardiac: No Neurological: No Genitourinary: No Gastrointestinal: No Musculoskeletal: No Endocrine: No HEENT: No Cancer: No Psychosocial: Yes Family Medical History Reviewed Nursing Family Hx Physical Exam Vital Signs Vital Signs - First Documented 05/27/21 17:28 Pulse 84 Resp 16 B/P (MAP) 137/86 (103) Pulse Ox 97 O2 Delivery Room Air Capillary Refill : Less Than 3 Seconds Height, Weight, BMI Height: '" Weight: lbs. oz. kg; 30.00 BMI Method: General Appearance: WD/WN, no apparent distress Cardiovascular: normal peripheral pulses, regular rate, rhythm, no edema Respiratory: chest non-tender, lungs clear, normal breath sounds Knees: left knee normal inspection, left knee normal range of motion, left knee soft tissue tenderness (Medial joint line.), left knee other (No varus valgus instability, negative Nimesh and anterior drawer. Pain with Clarice.) Neurologic/Psychiatric: no motor/sensory deficits, alert, normal mood/affect, oriented x 3 Skin: normal color, warm/dry Progress/Results/Core Measures Results/Orders My Orders Orders - ANIL MEJIAS Knee, Left, 3 Views (05/27/21 18:09) Naproxen Tablet (Naprosyn Tablet) (05/27/21 19:20) Vital Signs/I&O 05/27/21 17:28 Pulse 84 Resp 16 B/P (MAP) 137/86 (103) Pulse Ox 97 O2 Delivery Room Air Blood Pressure Mean: 103 Diagnostic Imaging Diagonstic Imaging: Xray Plain Films/CT/US/NM/MRI: knee Comments NAME: [facility] REC#: [id number] PT STATUS: REG ER : 1970 PHYSICIAN: ANIL MEJIAS ADMIT DATE: 05/27/21/ER Signed Date of Exam:05/27/21 KNEE, LEFT, 3 VIEWS INDICATION: Left knee swelling. TIME OF EXAM: 6:32 PM 3 views of the left knee show normal alignment. Joint spaces are fairly well maintained. Articular surfaces are smooth. No fracture, dislocation or effusion is seen. IMPRESSION: No acute bony abnormality is detected. Dictated by: Dictated on workstation # [id number] Dict: 05/27/211832 Trans: 05/27/211849 [facility] [id number] Interpreted by: CHARISSE VARNER MD Electronically signed by: CHARISSE VARNER MD 05/27/211849 Reviewed: Reviewed by Me Departure Impression Primary Impression: Pes anserinus bursitis of left knee Additional Impression: Left medial knee pain Disposition: 01 HOME, SELF-CARE Condition: Improved Departure-Patient Inst. Decision time for Depature: 19:20 Referrals: NO,LOCAL PHYSICIAN (PCP/Family) Primary Care Physician Patient Instructions: Knee Sprain (DC) Add. Discharge Instructions: Take Naprosyn 500 mg twice daily with food. Alternate heat and ice to your left knee. Follow-up at [facility] if the knee pain does not improve or worsens. Return to the emergency department for new, urgent healthcare needs. All discharge instructions reviewed with patient and/or family. Voiced understa nding. Scripts Naproxen (Naprosyn) 500 Mg Tablet 500 MG PO BID, #30 TAB 0 Refills Prov: ANIL MEJIAS 05/27/21 ANIL MEJIAS May 27, 2021 19:12
[2021-05-27] MEDS ORDERED: NAPROXEN 250 MG (NAPROSYN) TABLET PO STA (19:20)
[2021-05-27] MEDS ORDERED: NAPR-1071 PO (19:23)
[2021-05-27 19:33] VITALS: BP 137/86
== END 2021-05-27 19:33 | disposition home or self-care (01) ==
LOC: EDUNIT# 17:12 → ER 17:15
DX: M70.52 Other bursitis of knee, left knee (principal); F17.210 Nicotine dependence, cigarettes, uncomplicated
CPT/HCPCS: 73562

== ENCOUNTER 2021-05-31 08:40 | Emergency (ER) | payer MEDICARE ==
[~2021-05-31] VITALS: Ht 175 cm; Wt 90.7 kg
[~2021-05-31 08:40] MED LIST changes: +NAPR-1071 PO
--- NOTE | 2021-05-31 09:34 | ED Lower Extremity ---
General Chief Complaint: Lower Extremity Stated Complaint: L LEG PAIN Nursing Triage Note: PT CO OF L KNEE PAIN, SEEN IN ED 8 DAYS AGO FOR SAME CO. PT WEARING FARSHAD WRAP ON L KNEE AREA. WANTS A NEW BRACE Source: patient Exam Limitations: no limitations (TERRY BENITEZ STUDENT) History of Present Illness Date Seen by Provider: May 31, 2021 Time Seen by Provider: 09:10 Initial Comments Pt presents to ED with complaint of persistent L knee pain. He states that it began about 6 months ago and he was seen last week in the ED. He has been using compression wraps for it but it has been getting worse. He states that he was prescribed a pain medication but has not been taking it or picked it up from a pharmacy. He rates his pain 12/10, localized to medial and lateral sides of his L knee, denies raditation/numbness/tingling. He also has some mild pain/tenderness to his L tibial plateau. He has a history of meth use. He takes depakote, zyprexa, and other medications that he cannot recall. He denies other symptoms of fevers/chills, chest pain, SOB, N/V. Onset: other (worsening for the past 6 months) Severity: moderate Pain/Injury Location: left knee Method of Injury: unknown (denies trauma) Modifying Factors: Improves With Immobilization; Worse With Movement (TERRY BENITEZ STUDENT) Allergies and Home Medications Allergies Coded Allergies: haloperidol (Verified Allergy, Unknown, 03/04/21) trifluoperazine (Verified Allergy, Unknown, 03/04/21) Home Medications Hydrocodone/Acetaminophen 1 Each Tablet, 1 TAB PO Q4H PRN for PAIN-MODERATE (5- 7) Prescribed by: DOV BRITTON on 03/10/21 1240 Hydrocodone/Acetaminophen 1 Each Tablet, 1 TAB PO Q4H PRN for PAIN-MODERATE (5- 7) Prescribed by: DOV BRITTON on 05/31/21 1116 Naproxen 500 Mg Tablet, 500 MG PO BID Prescribed by: ANIL MEJIAS on 05/27/211922 Patient Home Medication List Home Medication List Reviewed: Yes (TERRY BENITEZ STUDENT) Review of Systems Constitutional: No chills, No fever EENTM: No hearing loss, No vision loss Respiratory: No cough, No short of breath Cardiovascular: No chest pain; edema; No palpitations Gastrointestinal: No abdominal pain, No constipation, No diarrhea Genitourinary: No discharge, No dysuria, No hematuria Musculoskeletal: No back pain; joint pain (L knee), joint swelling Skin: change in color (ecchymosis to L medial knee); No change in hair/nails (TERRY BENITEZ [employer] STUDENT) All Other Systems Reviewed Negative Unless Noted: Yes (TERRY BENITEZ StoredIQ) Past Mpcxizv-Wzmntb-Oljtks Hx Patient Social History Tobacco Use?: Yes Tobacco type used: Cigars Smoking Status: Current Everyday Smoker Smokeless Tobacco Frequency: Current Everyday User Use of E-Cig and/or Vaping Lm: Current Everyday User Substance use?: No Alcohol Use?: No Pt feels they are or have been: No (TERRY BENITEZ [employer] ZA) Immunizations Up To Date COVID19 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 oz. kg; 29.00 BMI Method: General Appearance: no apparent distress, other (unkempt) HEENT: PERRL/EOMI, normal ENT inspection, pharynx normal Neck: non-tender, full range of motion, supple, normal inspection Cardiovascular: normal peripheral pulses, regular rate, rhythm, no murmur Respiratory: chest non-tender, lungs clear, normal breath sounds, no respiratory distress, no accessory muscle use Gastrointestinal: normal bowel sounds, non tender, soft Back: normal inspection, no CVA tenderness, no vertebral tenderness Knees: right knee non-tender, right knee normal inspection, right knee normal range of motion; bilateral knee no evidence of injury; left knee ecchymosis (medial L knee), left knee pain, left knee soft tissue tenderness (medial/lateral L knee), left knee swelling (LLE>RLE) Reflexes: 2+ knee (R), 2+ knee (L), 2+ ankle (R), 2+ ankle (L) Neurologic/Tendon: normal sensation, normal motor functions, normal tendon functions, responds to pain Neurologic/Psychiatric: no motor/sensory deficits, alert, normal mood/affect, oriented x 3 Skin: warm/dry, ecchymosis (RLE, L medial knee), rash (erythematous patches to bilateral feet) Lymphatic: no adenopathy (TERRY BENITEZ MED STUDENT) Progress/Results/Core Measures Results/Orders My Orders Orders - DOV BRITTON APRN Triamcinolone Acetonide Im (Kenalog-40) (05/31/21 10:45) Bupivacaine 0.5% Injection (Sensorcaine (05/31/21 10:45) Lidocaine 1% Inj 20 Ml (Xylocaine 1% Inj (05/31/21 10:45) Body Fluid Cell Count (05/31/21 11:11) Body Fluid Culture (05/31/21 11:11) Crystals,Body Fluid (05/31/21 11:11) (DOV BRITTON APRN) Vital Signs/I&O 05/31/21 09:05 Temp 36.4 Pulse 108 Resp 18 B/P (MAP) 118/65 (82) Pulse Ox 94 (DOV BRITTON APRN) Blood Pressure Mean: 82 Progress Progress Note : Progress Note I attest that I saw this patient alongside the medical student and agree with his documented history, physical exam and review of systems except as otherwise noted. (MIMI RICHARDSON) Departure Communication (Admissions) 1113-I have seen the patient with Terry and agree with the plan of care. There is a palpable effusion rather small to the medial aspect of the patella. Bedside ultrasound confirms fluid collection. There is some bruising over the pes anserine bursa. Procedure note: Arthrocentesis left knee. The area to the medial aspect of the patella was anesthetized with lidocaine without epinephrine. Area was then scrubbed with Betadine which was allowed to dry. A larger 18-gauge needle was then inserted and 17 mL of yellowish synovial fluid was aspirated. 4 mL of 0.5% bupivacaine without epinephrine mixed with 40 mg of triamcinolone was instilled. (DOV BRITTON APRN) Impression Primary Impression: Knee effusion, left Disposition: 01 HOME, SELF-CARE Condition: Stable Departure-Patient Inst. Decision time for Depature: 11:15 (DOV BRITTON APRN) Referrals: NO,LOCAL PHYSICIAN (PCP/Family) Primary Care Physician Patient Instructions: Swollen Joints (DC) Scripts Leg Brace (Knee Brace) 1 Each Each EACH MC NEEDED for knee pain, #1 Prov: DOV BRITTON APRN 05/31/21 Hydrocodone/Acetaminophen (Hydrocodone-Acetamin 5-325 mg) 1 Each Tablet 1 TAB PO Q4H PRN for PAIN-MODERATE (5-7), #10 TAB Prov: DOV BRITTON APRN 05/31/21 TERRY BENITEZ MED STUDENT May 31, 2021 09:34 DOV BRITTON APRN May 31, 2021 11:17 MIMI RICHARDSON May 31, 2021 18:49
[2021-05-31] MEDS ORDERED: LIDOCAINE 1% INJ 20 ML 20 ML VIAL INJ ONE (10:45)
[2021-05-31] MEDS ORDERED: BUPIVACAINE 0.5% 30 ML (SENSORCAINE) VIAL INJ ONE (10:45)
[2021-05-31] MEDS ORDERED: TRIAMCINOLONE ACET (KENALOG-40) 40 MG/ML 1 ML VIAL IA ONE (10:45)
[2021-05-31] MEDS ORDERED: ACHD5005 PO (11:15)
[2021-05-31] MEDS ORDERED: LEG1EACH88 MC (11:17)
[2021-05-31 11:42] VITALS: BP 118/65
[2021-05-31 11:42] LABS: BODY FLUID APPEARENCE MOD CLDY; BODY FLUID COLOR YELLOW; BODY FLUID RBC COUNT 350 /uL; BODY FLUID SOURCE SYNOVIAL; BODY FLUID WBC TOTAL COUNT 4200 /uL
[2021-05-31 11:59] LABS: LYMPHOCYTES,BODY FLUID 4 %
== END 2021-05-31 11:42 | disposition home or self-care (01) ==
LOC: EDUNIT# 08:40 → ER 08:44
DX: S80.02XA Contusion of left knee, initial encounter (principal); M25.462 Effusion, left knee; F17.290 Nicotine dependence, other tobacco product, uncomplicated; X58.XXXA Exposure to other specified factors, initial encounter
CPT/HCPCS: 87070; 87205; 89051; 89060; 99283

== ENCOUNTER 2021-06-13 19:48 | Emergency (ER) | payer MEDICARE ==
[~2021-06-13] VITALS: Ht 172.7 cm; Wt 95.0 kg
[~2021-06-13 19:48] MED LIST changes: +LEG1EACH88 MC
--- NOTE | 2021-06-13 20:01 | ED Lower Extremity ---
General Stated Complaint: L KNEE PAIN Source: patient Exam Limitations: no limitations History of Present Illness Date Seen by Provider: Jun 13, 2021 Time Seen by Provider: 19:55 Initial Comments Patient is a 51-year-old male who presents to the emergency department today with a chief complaint of left knee pain and swelling. Patient has had multiple prior visits to the emergency department for similar complaints. He states he saw his primary care doctor today [facility] and was told "the knee ain't no good". Patient has not been taking Tylenol or ibuprofen because he does not like to take pills. He presents to the emergency department with an Gilberto wrap tightly wrapped around the outside of his jeans across the knee. Patient states that "poison was sucked out" about 3 weeks ago. He did not take antibiotics after this. Denies fevers or chills. No shortness of breath or chest pain. No Covid concerns. Was ambulatory to the emergency department on the left lower extremity. No other complaints of illness or injury. All other review of systems reviewed and negative except as stated. Onset: last week Pain/Injury Location: left knee Modifying Factors: Improves With Immobilization; Worse With Movement Allergies and Home Medications Allergies Coded Allergies: haloperidol (Verified Allergy, Unknown, 03/04/21) trifluoperazine (Verified Allergy, Unknown, 03/04/21) Patient Home Medication List Home Medication List Reviewed: Yes Hydrocodone/Acetaminophen (Hydrocodone-Acetamin 5-325 mg) 1 Each Tablet, 1 TAB PO Q4H PRN for PAIN-MODERATE (5-7) Prescribed by: DOV BRITTON on 03/10/21 1240 Hydrocodone/Acetaminophen (Hydrocodone-Acetamin 5-325 mg) 1 Each Tablet, 1 TAB P O Q4H PRN for PAIN-MODERATE (5-7) Prescribed by: DOV BRITTON on 05/31/21 1116 Leg Brace (Knee Brace) 1 Each Each, EACH MC NEEDED, (DME) Prescribed by: DOV BRITTON on 05/31/21 1117 Naproxen (Naprosyn) 500 Mg Tablet, 500 MG PO BID Prescribed by: ANIL MEJIAS on 05/27/211922 Review of Systems Constitutional: see HPI EENTM: no symptoms reported Respiratory: no symptoms reported Cardiovascular: no symptoms reported Gastrointestinal: no symptoms reported Genitourinary: no symptoms reported Musculoskeletal: joint pain (left knee) All Other Systems Reviewed Negative Unless Noted: Yes Past Wodslnq-Uillwr-Ndewfx Hx Seasonal Allergies Seasonal Allergies: No Past Medical History Surgeries: Yes (HERNIA) Orthopedic Respiratory: No Cardiac: No Neurological: No Genitourinary: No Gastrointestinal: No Musculoskeletal: No Endocrine: No HEENT: No Cancer: No Psychosocial: Yes Physical Exam Vital Signs Vital Signs - First Documented 06/13/21 19:55 Temp 36.5 Pulse 91 Resp 20 B/P (MAP) 167/95 (119) Pulse Ox 94 O2 Delivery Room Air Capillary Refill : Height, Weight, BMI Height: '" Weight: lbs. oz. kg; 29.00 BMI Method: General Appearance: WD/WN, no apparent distress Cardiovascular: regular rate, rhythm Respiratory: lungs clear, normal breath sounds, no respiratory distress, no accessory muscle use Hips: bilateral hip non-tender, bilateral hip normal inspection, bilateral hip normal range of motion, bilateral hip no evidence of injury Legs: bilateral leg non-tender, bilateral leg normal inspection, bilateral leg normal range of motion, bilateral leg no evidence of injury Ankles: bilateral ankle non-tender, bilateral ankle normal inspection, bilateral ankle normal range of motion, bilateral ankle no evidence of injury Neurologic/Tendon: normal sensation, normal motor functions, normal tendon functions Neurologic/Psychiatric: alert, normal mood/affect, oriented x 3 Skin: normal color, warm/dry Progress/Results/Core Measures Results/Orders My Orders Orders - KEVIN ROY MD Ketorolac Injection (Toradol Injection) (06/13/21 20:30) Vital Signs/I&O 06/13/21 06/13/21 19:55 20:35 Temp 36.5 36.5 Pulse 91 91 Resp 20 20 B/P (MAP) 167/95 (119) 167/95 Pulse Ox 94 94 O2 Delivery Room Air Room Air Progress Progress Note : Time: 20:17 Progress Note Patient had the Gilberto wrap on his left knee so tightly that he was compressing the knee compromising venous return to the left lower extremity. Patient had developed significant edema to the left lower extremity. He was counseled on not wrapping the knee so tightly. He seemed to understand. He does have a history of mental health disorder but again seemed to understand. I recommended that he go to [email or web address] and get a knee sleeve to help support the knee. I have recommended that he take [id number]-pxljwzs ibuprofen or naproxen. I am going to give him a shot of Toradol tonight. Will refer him again to orthopedics and to his primary care physician. No clinical or objective findings to warrant further studies from the emergency department. He does not have a large effusion, the knee is not red or warm, he has good range of motion I do not suspect a septic joint. Departure Impression Primary Impression: Chronic pain of left knee Disposition: HOME, SELF-CARE Condition: Stable Departure-Patient Inst. Decision time for Depature: 20:01 Referrals: [facility] [place],LOCAL PHYSICIAN (PCP) Primary Care Physician VERONICA FARNSWORTH MD,XANDER Ross MD Patient Instructions: Knee Pain (DC) Add. Discharge Instructions: Go to [facility] and get a black knee sleeve for support of your left knee. do not wrap the gilberto wrap to tightly around your knee, this will cause swelling in the leg and increase your pain. take over the counter ibuprofen or alleve to help with pain. Follow up with Orthopedics, i have given you names to call for a follow up appointment. return to the ER for any new, concerning or emergent symptoms or if the knee gets red, hot or swells more. KEVIN ROY MD Jun 13, 2021 20:01
[2021-06-13] MEDS ORDERED: KETOROLAC 30 MG/ML VIAL IM ONE (20:30)
[2021-06-13 20:35] VITALS: BP 167/95
== END 2021-06-13 20:35 | disposition home or self-care (01) ==
LOC: ER 19:48
DX: G89.29 Other chronic pain (principal); M25.562 Pain in left knee; Z79.891 Long term (current) use of opiate analgesic
CPT/HCPCS: 99284

== ENCOUNTER 2021-07-02 12:17 | Emergency (ER) | payer MEDICARE ==
[~2021-07-02] VITALS: Ht 167.7 cm; Wt 75.0 kg
--- NOTE | 2021-07-02 13:01 | ED General ---
General Chief Complaint: General Problems/Pain Stated Complaint: WEAKNESS Nursing Triage Note: AMB TO ED BY EMS WHO WAS CALLED BECAUSE HE JUST DO'T FEEL RIGHT. PATIENT REPORTS THAT FAMILY DROPPED HIM OFFIN TOWN WHO LIVE IN [place], [place]. Source of Information: Patient Exam Limitations: No Limitations History of Present Illness Date Seen by Provider: Jul 02, 2021 Time Seen by Provider: 13:00 Initial Comments To ER with no specific complaint other than stating that he just does not feel right. Not homicidal or suicidal and is without any complaint of shortness of b reath nausea or pain. He has been off of his Zyprexa for about a week. Timing/Duration: 1-2 Days Severity: Moderate Associated Systoms: Denies Symptoms Allergies and Home Medications Allergies Coded Allergies: haloperidol (Verified Allergy, Unknown, 03/04/21) trifluoperazine (Verified Allergy, Unknown, 03/04/21) Patient Home Medication List Home Medication List Reviewed: Yes Hydrocodone/Acetaminophen (Hydrocodone-Acetamin 5-325 mg) 1 Each Tablet, 1 TAB PO Q4H PRN for PAIN-MODERATE (5-7) Prescribed by: DOV BRITTON on 03/10/21 1240 Hydrocodone/Acetaminophen (Hydrocodone-Acetamin 5-325 mg) 1 Each Tablet, 1 TAB PO Q4H PRN for PAIN-MODERATE (5-7) Prescribed by: DOV BRITTON on 05/31/21 1116 Leg Brace (Knee Brace) 1 Each Each, EACH MC NEEDED, (DME) Prescribed by: DOV BRITTON on 05/31/21 1117 Naproxen (Naprosyn) 500 Mg Tablet, 500 MG PO BID Prescribed by: ANIL MEJIAS on 05/27/213 Review of Systems Review of Systems Constitutional: see HPI EENTM: see HPI Respiratory: no symptoms reported Cardiovascular: no symptoms reported Genitourinary: no symptoms reported Musculoskeletal: no symptoms reported Skin: no symptoms reported Psychiatric/Neurological: See HPI Hematologic/Lymphatic: No Symptoms Reported Past Onzozhh-Gbonsh-Ncehqs Hx Patient Social History Tobacco Use?: No Substance use?: No Pt feels they are or have been: No Immunizations Up To Date First/Initial COVID19 Vaccinat: 2 MONTHS AGO [facility] Second COVID19 Vaccination Carl: 2 MONTHS [facility] 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 Seasonal Allergies Seasonal Allergies: No Past Medical History Surgeries: Yes (HERNIA) Orthopedic Respiratory: No Cardiac: No Neurological: No Genitourinary: No Gastrointestinal: No Musculoskeletal: No Endocrine: No HEENT: No Cancer: No Psychosocial: Yes Physical Exam Vital Signs Vital Signs - First Documented 07/02/21 12:25 Temp 36.5 Pulse 86 Resp 18 B/P (MAP) 147/95 (112) Pulse Ox 95 O2 Delivery Room Air Capillary Refill : Less Than 3 Seconds Height, Weight, BMI Height: '" Weight: lbs. oz. kg; 26.00 BMI Method: General Appearance: No Apparent Distress, WD/WN Eyes: Bilateral Eye Normal Inspection, Bilateral Eye PERRL, Bilateral Eye EOMI Neck: Full Range of Motion Respiratory: No Accessory Muscle Use, No Respiratory Distress Cardiovascular: Regular Rate, Rhythm, Normal Peripheral Pulses Gastrointestinal: Normal Bowel Sounds, Non Tender, Soft Extremity: Normal Capillary Refill, Normal Inspection Neurologic/Psychiatric: Alert, Oriented x3 Skin: Normal Color, Warm/Dry Progress/Results/Core Measures Suspected Sepsis SIRS Temperature: Pulse: 86 Respiratory Rate: 18 Laboratory Tests 07/02/21 12:54: White Blood Count 7.4 Blood Pressure 147 /95 Mean: 112 Laboratory Tests 07/02/21 12:54: Creatinine 0.79, Platelet Count 319, Total Bilirubin 1.0 Results/Orders Lab Results Laboratory Tests Test 07/02/21 12:54 07/02/21 13:00 Range/Units White Blood Count 7.4 4.3-11.0 10^3/uL Red Blood Count 4.63 4.30-5.52 10^6/uL Hemoglobin 13.1 L 13.3-17.7 g/dL Hematocrit 39 L 40-54 % Mean Corpuscular Volume 84 80-99 fL Mean Corpuscular Hemoglobin 28 25-34 pg Mean Corpuscular Hemoglobin Concent 34 32-36 g/dL Red Cell Distribution Width 18.9 H 10.0-14.5 % Platelet Count 319 130-400 10^3/uL Mean Platelet Volume 10.3 9.0-12.2 fL Immature Granulocyte % (Auto) 0 % Neutrophils (%) (Auto) 66 42-75 % Lymphocytes (%) (Auto) 25 12-44 % Monocytes (%) (Auto) 8 0-12 % Eosinophils (%) (Auto) 1 0-10 % Basophils (%) (Auto) 0 0-10 % Neutrophils # (Auto) 4.8 1.8-7.8 10^3/uL Lymphocytes # (Auto) 1.8 1.0-4.0 10^3/uL Monocytes # (Auto) 0.6 0.0-1.0 10^3/uL Eosinophils # (Auto) 0.0 0.0-0.3 10^3/uL Basophils # (Auto) 0.0 0.0-0.1 10^3/uL Immature Granulocyte # (Auto) 0.0 0.0-0.1 10^3/uL Sodium Level 137 135-145 MMOL/L Potassium Level 3.3 L 3.6-5.0 MMOL/L Chloride Level 99 98-107 MMOL/L Carbon Dioxide Level 26 21-32 MMOL/L Anion Gap 12 5-14 MMOL/L Blood Urea Nitrogen 15 7-18 MG/DL Creatinine 0.79 0.60-1.30 MG/DL Estimat Glomerular Filtration Rate 103 BUN/Creatinine Ratio 19 Glucose Level 88 70-105 MG/DL Calcium Level 9.8 8.5-10.1 MG/DL Corrected Calcium 9.9 8.5-10.1 MG/DL Total Bilirubin 1.0 0.1-1.0 MG/DL Aspartate Amino Transf (AST/SGOT) 28 5-34 U/L Alanine Aminotransferase (ALT/SGPT) 17 0-55 U/L Alkaline Phosphatase 88 40-136 U/L Total Creatine Kinase 338 H 30-200 U/L Total Protein 7.8 6.4-8.2 GM/DL Albumin 3.9 3.2-4.5 GM/DL Urine Opiates Screen NEGATIVE NEGATIVE Urine Oxycodone Screen NEGATIVE NEGATIVE Urine Methadone Screen NEGATIVE NEGATIVE Urine Propoxyphene Screen NEGATIVE NEGATIVE Urine Barbiturates Screen NEGATIVE NEGATIVE Ur Tricyclic Antidepressants Screen NEGATIVE NEGATIVE Urine Phencyclidine Screen NEGATIVE NEGATIVE Urine Amphetamines Screen POSITIVE H NEGATIVE Urine Methamphetamines Screen POSITIVE H NEGATIVE Urine Benzodiazepines Screen NEGATIVE NEGATIVE Urine Cocaine Screen NEGATIVE NEGATIVE Urine Cannabinoids Screen NEGATIVE NEGATIVE Serum Alcohol < 10 <10 MG/DL Urine Color ORANGE Urine Clarity SL CLOUDY Urine pH 6.0 5-9 Urine Specific [place] >=1.030 1.016-1.022 Urine Protein 2+ H NEGATIVE Urine Glucose (UA) NEGATIVE NEGATIVE Urine Ketones TRACE H NEGATIVE Urine Nitrite NEGATIVE NEGATIVE Urine Bilirubin NEGATIVE NEGATIVE Urine Urobilinogen 1.0 < = 1.0 MG/DL Urine Leukocyte Esterase NEGATIVE NEGATIVE Urine RBC (Auto) NEGATIVE NEGATIVE Urine RBC RARE /HPF Urine WBC 0-2 /HPF Urine Crystals NONE /LPF Urine Bacteria NEGATIVE /HPF Urine Casts PRESENT /LPF Urine Hyaline Casts 0-2 H /LPF Urine Mucus LARGE H /LPF Urine Culture Indicated NO My Orders Orders - DOV BRITTON APRN Ua Culture If Indicated (07/02/21 12:34) Cbc With Automated Diff (07/02/21 12:34) Creatine Kinase (07/02/21 12:34) Comprehensive Metabolic Panel (07/02/21 12:34) Ed Iv/Invasive Line Start (07/02/21 12:34) Drug Screen Stat (Urine) (07/02/21 12:34) Alcohol (07/02/21 12:34) Lactated Ringers (Lr 1000 Ml Iv Solution (07/02/21 12:45) Olanzapine Orally Dissolve Tab (Zyprexa (07/02/21 13:00) Medications Given in ED Current Medications Medications Dose Ordered Sig/Loy Route Start Time Stop Time Status Last Admin Dose Admin Olanzapine 10 mg ONCE ONCE PO 07/02/21 13:00 07/02/21 13:01 DC 07/02/21 13:04 10 MG Vital Signs/I&O 07/02/21 12:25 Temp 36.5 Pulse 86 Resp 18 B/P (MAP) 147/95 (112) Pulse Ox 95 O2 Delivery Room Air Capillary Refill : Less Than 3 Seconds Blood Pressure Mean: 112 Departure Impression Primary Impression: General medical exam Disposition: HOME, SELF-CARE Condition: Stable Departure-Patient Inst. Decision time for Depature: 13:40 Referrals: NO,LOCAL PHYSICIAN (PCP/Family) Primary Care Physician Patient Instructions: NO INSTRUCTIONS GIVEN Scripts Olanzapine (Zyprexa) 5 Mg Tablet 5 MG PO DAILY, #20 TAB Prov: DOV BRITTON APRN 07/02/21 DOV BRITTON APRN Jul 02, 2021 13:01
[2021-07-02] MEDS: OLANZapine 5 MG ODT (ZyPREXA ZYDIS) PO ONE (13:04)
[2021-07-02] MEDS: LACTATED RINGERS 1,000 ML IV SCH (13:05)
[2021-07-02 13:08] LABS: BASOPHILS % (AUTO) 0 % (0-10); EOSINOPHILS % (AUTO) 1 % (0-10); HEMATOCRIT 39 % (40-54); HEMOGLOBIN 13.1 g/dL (13.3-17.7); LYMPHOCYTES # (AUTO) 1.8 10^3/uL (1.0-4.0); LYMPHOCYTES % (AUTO) 25 % (12-44); MEAN CORPUSCULAR HEMOGLOBIN 28 pg (25-34); MEAN CORPUSCULAR HGB CONC 34 g/dL (32-36); MEAN CORPUSCULAR VOLUME 84 fL (80-99); MEAN PLATELET VOLUME 10.3 fL (9.0-12.2); MONOCYTES # (AUTO) 0.6 10^3/uL (0.0-1.0); MONOCYTES % (AUTO) 8 % (0-12); NEUTROPHILS # (AUTO) 4.8 10^3/uL (1.8-7.8); NEUTROPHILS % (AUTO) 66 % (42-75); PLATELET COUNT 319 10^3/uL (130-400); WHITE BLOOD COUNT 7.4 10^3/uL (4.3-11.0)
[2021-07-02 13:12] LABS: CLARITY,URINE SL CLOUDY; COLOR,URINE ORANGE; GLUCOSE, URINE (UA) NEGATIVE (NEGATIVE); KETONES,URINE TRACE (NEGATIVE); LEUKOCYTE ESTERASE ,URINE NEGATIVE (NEGATIVE); NITRITE,URINE NEGATIVE (NEGATIVE); PROTEIN,URINE 2+ (NEGATIVE)
[2021-07-02 13:19] LABS: ALBUMIN 3.9 GM/DL (3.2-4.5); CHLORIDE 99 MMOL/L (98-107); POTASSIUM 3.3 MMOL/L (3.6-5.0); SODIUM 137 MMOL/L (135-145)
[2021-07-02 13:20] LABS: BILIRUBIN,URINE NEGATIVE (NEGATIVE); RBC,URINE RARE /HPF
[2021-07-02 13:21] LABS: BACTERIA,URINE NEGATIVE /HPF; HYALINE CASTS, URINE 0-2 /LPF; WBC,URINE 0-2 /HPF
[2021-07-02 13:21] LABS: CALCIUM 9.8 MG/DL (8.5-10.1)
[2021-07-02 13:22] LABS: GLUCOSE 88 MG/DL (70-105); TOTAL PROTEIN 7.8 GM/DL (6.4-8.2)
[2021-07-02 13:23] LABS: CARBON DIOXIDE 26 MMOL/L (21-32)
[2021-07-02 13:25] LABS: ALKALINE PHOSPHATASE 88 U/L (40-136)
[2021-07-02 13:26] LABS: CREATININE SERUM 0.79 MG/DL (0.60-1.30); GFR ESTIMATED 103
[2021-07-02 13:27] LABS: BUN/CREATININE RATIO 19
[2021-07-02 13:29] LABS: ALANINE AMINOTRANSFERASE 17 U/L (0-55); CREATINE KINASE 338 U/L (30-200)
[2021-07-02 13:33] LABS: AMPHETAMINE SCREEN, URINE POSITIVE (NEGATIVE); BARBITURATE SCREEN URINE NEGATIVE (NEGATIVE); BENZODIAZEPINES SCREEN URINE NEGATIVE (NEGATIVE); CANNABINOID SCREEN, URINE NEGATIVE (NEGATIVE); COCAINE SCREEN URINE NEGATIVE (NEGATIVE); METHADONE STAT NEGATIVE (NEGATIVE); METHAMPHETAMINE SCREEN URINE S POSITIVE (NEGATIVE); OPIATE SCREEN URINE NEGATIVE (NEGATIVE); OXYCODONE STAT NEGATIVE (NEGATIVE); PROPOXYPHENE STAT NEGATIVE (NEGATIVE); TRICYCLIC ANTIDEPRESSANTS SCRE NEGATIVE (NEGATIVE)
[2021-07-02] MEDS ORDERED: OLAN5TAB3 PO (13:51)
[2021-07-02 14:08] VITALS: BP 150/93
== END 2021-07-02 14:20 | disposition home or self-care (01) ==
LOC: EDUNIT# 12:17 → ER 12:22
DX: Z00.00 Encounter for general adult medical examination without abnormal findings (principal)
CPT/HCPCS: 80053; 80306; 81000; 82550; 85025; 99284; G0480; 36415; 80320

== ENCOUNTER 2021-07-07 10:18 | Emergency (ER) | payer MEDICARE ==
[~2021-07-07] VITALS: Ht 172 cm; Wt 73.0 kg
[~2021-07-07 10:18] MED LIST changes: +OLAN5TAB3 PO
[2021-07-07 10:34] VITALS: BP 132/91
[2021-07-07] MEDS ORDERED: KETOROLAC 30 MG/ML VIAL IM ONE (11:45)
--- NOTE | 2021-07-07 11:48 | ED Lower Extremity ---
General Chief Complaint: Lower Extremity Stated Complaint: L LEG PAIN Nursing Triage Note: Pt ambulatory to ED with complaint of L knee pain he rates 10/10 and describes as "sharp." Pt reports pain has been ongoing for approximately 1 week, denies injury, and that nothing makes it better or worse, including tylenol, ibuprofen and ice. Pt able to ambulate, but reports it is difficult due to pain. No visual deformities noted. Source: patient Exam Limitations: other (speech difficulties ) (KEIVN CARTY MED STUDENT) Source: old records (VERONICA HA MD) History of Present Illness Date Seen by Provider: Jul 07, 2021 Time Seen by Provider: 11:15 Initial Comments This is Shantanu, a 51 yo M, who is here for L knee pain. Pt states that the knee pain has been going on for years. He came in today because it just, "doesn't feel right." Describes it as sharp pain, located on the medial and lateral joint lines of the L knee. When asked how he gets around, he said that he just doesn't get around. Pt reports a limp. Pt denies any recent trauma to that area. He is here for a steroid injection and gilberto bandage. Pt states that the last steroid injection was done 7 months ago, per chart review, the last injection was on 05/31/21. Pt also states that he has not been wrapping his knee at all for the last 7 weeks, per chart review it was heavily wrapped compromising blood flow (05/31/21). 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 Onset: other (chronic condition ) Severity: mild Pain/Injury Location: left knee Method of Injury: unknown Modifying Factors: Worse With Movement; Improves With Rest (KEVIN CARTY MED STUDENT) Initial Comments Patient's chart was reviewed. He has been seen multiple times in the last few months. He last had an arthrocentesis and steroid injection May 31. Synovial fluid culture did grow Propionibacterium acnes. However, this did not correlate with the microscopic examination of the synovial fluid as there is not a significant leukocytosis noted. WBC count on the synovial fluid was only 4200. On exam today the patient has a mild effusion. He does not appear to have significant tenderness, pain that limits range of motion, significant heat, or other inflammatory changes to suggest septic arthritis. He is afebrile. He does not report taking any pain medications at home. He states he needs to ambulate across the street to [facility] to get his medications filled, and he is having trouble walking well enough to get there. Patient reports being seen previously at [facility] for this problem. (VERONICA HA MD) Allergies and Home Medications Allergies Coded Allergies: haloperidol (Verified Allergy, Unknown, 03/04/21) trifluoperazine (Verified Allergy, Unknown, 03/04/21) Patient Home Medication List Home Medication List Reviewed: Yes (VERONICA HA MD) Hydrocodone/Acetaminophen (Hydrocodone-Acetamin 5-325 mg) 1 Each Tablet, 1 TAB PO Q4H PRN for PAIN-MODERATE (5-7) Prescribed by: DOV BRITTON on 03/10/21 1240 Hydrocodone/Acetaminophen (Hydrocodone-Acetamin 5-325 mg) 1 Each Tablet, 1 TAB PO Q4H PRN for PAIN-MODERATE (5-7) Prescribed by: DOV BRITTON on 05/31/21 1116 Leg Brace (Knee Brace) 1 Each Each, EACH MC NEEDED, (DME) Prescribed by: DOV BRITTON on 05/31/21 1117 Naproxen (Naprosyn) 500 Mg Tablet, 500 MG PO BID Prescribed by: ANIL MEJIAS on 05/27/21 1923 Olanzapine (Zyprexa) 5 Mg Tablet, 5 MG PO DAILY Prescribed by: DOV BRITTON on 07/02/21 1351 Review of Systems Constitutional: No chills; malaise Respiratory: No cough, No short of breath Cardiovascular: No chest pain Gastrointestinal: no symptoms reported Genitourinary: no symptoms reported Musculoskeletal: joint pain (L knee), muscle stiffness (L knee ) (KEVIN CARTY STUDENT) Past Rvwhpxl-Cfxipy-Bxhypz Hx Patient Social History Tobacco Use?: Yes Tobacco type used: Cigarettes Smoking Status: Current Everyday Smoker Use of E-Cig and/or Vaping dev: No Substance use?: No Alcohol Use?: No Pt feels they are or have been: No (KEVIN CARTY STUDENT) Immunizations Up To Date First/Initial COVID19 Vaccinat: unk Second COVID19 Vaccination Carl: unk 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 oz. kg; 24.00 BMI Method: General Appearance: WD/WN, no apparent distress Cardiovascular: regular rate, rhythm, no murmur Respiratory: lungs clear, normal breath sounds, no respiratory distress Hips: bilateral hip non-tender Legs: bilateral leg non-tender Knees: right knee non-tender, right knee no evidence of injury; left knee bone tenderness, left knee swelling (2+ pitting edema) Ankles: bilateral ankle non-tender Feet: bilateral foot non-tender Neurologic/Tendon: normal sensation, responds to pain Skin: normal color, warm/dry; No ecchymosis, No rash (KEVIN CARTY STUDENT) Progress/Results/Core Measures Results/Orders My Orders Orders - VERONICA HA MD Ketorolac Injection (Toradol Injection) (07/07/21 11:45) (VERONICA HA MD) Medications Given in ED Current Medications Medications Dose Ordered Sig/Loy Route Start Time Stop Time Status Last Admin Dose Admin Ketorolac Tromethamine 30 mg ONCE ONCE IM 07/07/21 11:45 07/07/21 11:46 DC 07/07/21 11:54 30 MG (VERONICA HA MD) Vital Signs/I&O 07/07/21 10:34 Temp 36.6 Pulse 99 Resp 18 B/P (MAP) 132/91 (105) Pulse Ox 95 O2 Delivery Room Air (VERONICA HA MD) Blood Pressure Mean: 105 Progress Progress Note : Time: 12:18 Progress Note Patient was examined. Exam was not at all convincing for septic arthritis. He did have some tenderness in the joint line and a mild effusion. There was some laxity in the patella as well. Beyond that exam was relatively unremarkable. He did have pitting edema of the lower extremities bilaterally, left slightly greater than right. Pedal pulses were strong. Patient received a Toradol injection. He dressed himself and walked out of the ER prior to discharge. He was found in the waiting room and was discharged from there. (VERONICA HA MD) Departure Impression Primary Impression: Chronic pain of left knee Disposition: HOME, SELF-CARE Condition: Improved Departure-Patient Inst. Decision time for Depature: 12:10 (VERONICA HA MD) Referrals: NO,LOCAL PHYSICIAN (PCP/Family) Primary Care Physician Patient Instructions: Chronic Knee Pain Add. Discharge Instructions: [facility] at [facility] as soon as [facility]. In the meantime you may use ibuprofen up to 600 mg every 6 hours and/or Tylenol (acetaminophen) up to 1000 mg every 6 hours as needed for pain. Compressive wrapping with an Gilberto bandage may also be helpful. Icing in 20-minute intervals and elevation may also be helpful. Call with questions or concerns. Return to the ER if you have worsening symptoms. All discharge instructions reviewed with patient and/or family. Voiced understanding. Medical Student Attestation and Attending Note: I have personally interviewed and examined this patient along with ZACHARY Gallardo. I have reviewed student documentation including history, physical, and assessments. I agree with the documentation except where otherwise noted. Exam: General: Alert, oriented, no acute distress, well developed HEENT: Normocephalic and atraumatic Heart: Regular rate and rhythm without murmur Lungs: Clear to auscultation bilaterally with normal effort Extremities: Mild effusion of the left knee with mild medial and lateral joint space tenderness. Some laxity of the patella. Passive range of motion normal. No significant heat or erythema. Neuropsych: Alert, oriented, no focal deficits Skin: Warm and dry without rashes (VERONICA HA MD) Copy Copies To 1: ADRIANA HUTCHINSON MD, KATHRYN MED STUDENT Jul 07, 2021 11:48 VERONICA HA MD Jul 07, 2021 12:11
== END 2021-07-07 12:14 | disposition home or self-care (01) ==
LOC: EDUNIT# 10:18 → ER 10:19
DX: G89.29 Other chronic pain (principal); M25.462 Effusion, left knee; F17.210 Nicotine dependence, cigarettes, uncomplicated
CPT/HCPCS: 99284

== ENCOUNTER 2021-07-08 15:56 | Emergency (ER) | payer MEDICARE ==
[~2021-07-08] VITALS: Ht 172 cm; Wt 77.0 kg
[2021-07-08] MEDS ORDERED: KETOROLAC 30 MG/ML VIAL IM ONE (16:15)
--- NOTE | 2021-07-08 17:02 | ED General ---
General Chief Complaint: Lower Extremity Stated Complaint: L LEG PAIN Nursing Triage Note: AMB TO ROOM WITH GRZEGORZ WITH C/O CHRONIC L LEG PAAIN Source of Information: Old Records Exam Limitations: No Limitations History of Present Illness Date Seen by Provider: Jul 08, 2021 Time Seen by Provider: 16:02 Initial Comments Patient was known to me from prior recent visit. After reviewing chief complaint Toradol was ordered for proper treatment of his pain. This was administered by nursing staff after triage. Patient did not wait for examination and discharge by the ER provider, leaving without being seen. He was never seen by the provider. Allergies and Home Medications Allergies Coded Allergies: haloperidol (Verified Allergy, Unknown, 03/04/21) trifluoperazine (Verified Allergy, Unknown, 03/04/21) Patient Home Medication List Home Medication List Reviewed: Yes Hydrocodone/Acetaminophen (Hydrocodone-Acetamin 5-325 mg) 1 Each Tablet, 1 TAB PO Q4H PRN for PAIN-MODERATE (5-7) Prescribed by: DOV BRITTON on 03/10/21 1240 Hydrocodone/Acetaminophen (Hydrocodone-Acetamin 5-325 mg) 1 Each Tablet, 1 TAB PO Q4H PRN for PAIN-MODERATE (5-7) Prescribed by: DOV BRITTON on 05/31/21 1116 Leg Brace (Knee Brace) 1 Each Each, EACH MC NEEDED, (DME) Prescribed by: DOV BRITTON on 05/31/21 1117 Naproxen (Naprosyn) 500 Mg Tablet, 500 MG PO BID Prescribed by: ANIL MEJIAS on 05/27/21 1923 Olanzapine (Zyprexa) 5 Mg Tablet, 5 MG PO DAILY Prescribed by: DOV BRITTON on 07/02/21 1351 Review of Systems Review of Systems Constitutional: no symptoms reported Musculoskeletal: see HPI Past Wxmtzbh-Vaksyd-Twodvj Hx Patient Social History Tobacco Use?: No Immunizations Up To Date First/Initial COVID19 Vaccinat: unk Second COVID19 Vaccination Carl: unk Seasonal Allergies Seasonal Allergies: No Past Medical History Surgeries: Yes (HERNIA) Orthopedic Respiratory: No Cardiac: No Neurological: No Genitourinary: No Gastrointestinal: No Musculoskeletal: No Endocrine: No HEENT: No Cancer: No Psychosocial: Yes Physical Exam Vital Signs Vital Signs - First Documented 07/08/21 16:02 Temp 37.3 Pulse 100 Resp 18 B/P (MAP) 134/99 (111) Pulse Ox 97 O2 Delivery Room Air Capillary Refill : Less Than 3 Seconds Height, Weight, BMI Height: '" Weight: lbs. oz. kg; 26.00 BMI Method: General Appearance: Other (Not examined by this provider, known to be ambulatory from triage) Progress/Results/Core Measures Suspected Sepsis SIRS Temperature: Pulse: 100 Respiratory Rate: 18 Blood Pressure 134 /99 Mean: 111 Results/Orders My Orders Orders - VERONICA HA MD Ketorolac Injection (Toradol Injection) (07/08/21 16:15) Medications Given in ED Vital Signs/I&O 07/08/21 07/08/21 16:02 17:17 Temp 37.3 37.3 Pulse 100 100 Resp 18 18 B/P (MAP) 134/99 (111) 134/99 Pulse Ox 97 97 O2 Delivery Room Air Room Air Capillary Refill : Less Than 3 Seconds Blood Pressure Mean: 111 Departure Impression Primary Impression: Chronic pain of left knee Additional Impression: Patient left without being seen Disposition: 07 AGAINST MEDICAL ADVICE Condition: Against Medical Advice Departure-Patient Inst. Referrals: NO,LOCAL PHYSICIAN (PCP/Family) Primary Care Physician VERONICA HA MD Jul 08, 2021 17:02
[2021-07-08 17:17] VITALS: BP 134/99
== END 2021-07-08 17:19 | disposition left against medical advice (07) ==
LOC: EDUNIT# 15:56 → ER 15:58
DX: G89.29 Other chronic pain (principal); M25.562 Pain in left knee
CPT/HCPCS: 99284

== ENCOUNTER 2021-07-23 19:39 | Emergency (ER) | payer MEDICARE ==
[~2021-07-23] VITALS: Ht 172 cm; Wt 77.0 kg
--- NOTE | 2021-07-23 20:09 | ED General ---
General Stated Complaint: FATIGUE / NOT SLEEPING Source of Information: Patient Exam Limitations: No Limitations (DOV BRITTON APRN) History of Present Illness Date Seen by Provider: Jul 23, 2021 Time Seen by Provider: 20:05 Initial Comments He is here because he would like to have his Depakote level checked. He has been out of it for a few days and states that it is waiting for him at [facility] and he will get it tomorrow Timing/Duration: 1-2 Days Severity: Moderate Associated Systoms: Denies Symptoms (DOV BRITTON APRN) Allergies and Home Medications Allergies Coded Allergies: haloperidol (Verified Allergy, Unknown, 03/04/21) trifluoperazine (Verified Allergy, Unknown, 03/04/21) Patient Home Medication List Home Medication List Reviewed: Yes (DOV BRITTON APRN) Hydrocodone/Acetaminophen (Hydrocodone-Acetamin 5-325 mg) 1 Each Tablet, 1 TAB PO Q4H PRN for PAIN-MODERATE (5-7) Prescribed by: DOV BRITTON on 03/10/21 1240 Hydrocodone/Acetaminophen (Hydrocodone-Acetamin 5-325 mg) 1 Each Tablet, 1 TAB PO Q4H PRN for PAIN-MODERATE (5-7) Prescribed by: DOV BRITTON on 05/31/21 1116 Leg Brace (Knee Brace) 1 Each Each, EACH [facility] NEEDED, (DME) Prescribed by: DOV BRITTON on 05/31/21 1117 Naproxen (Naprosyn) 500 Mg Tablet, 500 MG PO BID Prescribed by: ANIL MEJIAS on 05/27/21 1923 Olanzapine (Zyprexa) 5 Mg Tablet, 5 MG PO DAILY Prescribed by: DOV BRITTON on 07/02/21 1351 Review of Systems Review of Systems Constitutional: see HPI EENTM: see HPI Respiratory: no symptoms reported Cardiovascular: no symptoms reported Genitourinary: no symptoms reported Musculoskeletal: no symptoms reported Skin: no symptoms reported, see HPI Psychiatric/Neurological: No Symptoms Reported Hematologic/Lymphatic: No Symptoms Reported (DOV BRITTON APRN) Past Wwdmbth-Azqydf-Pqxakj Hx Immunizations Up To Date First/Initial COVID19 Vaccinat: unk Second COVID19 Vaccination Carl: unk (DOV BRITTON APRN) Seasonal Allergies Seasonal Allergies: No (DOV BRITTON APRN) Past Medical History Surgeries: Yes (HERNIA) Orthopedic Respiratory: No Cardiac: No Neurological: No Genitourinary: No Gastrointestinal: No Musculoskeletal: No Endocrine: No HEENT: No Cancer: No Psychosocial: Yes (DOV BRITTON APRN) Physical Exam Vital Signs Vital Signs - First Documented (RANI JOYA DO) Vital Signs Capillary Refill : (DOV BRITTON APRN) Height, Weight, BMI Height: '" Weight: lbs. oz. kg; 26.00 BMI Method: General Appearance: No Apparent Distress, WD/WN, Anxious Eyes: Bilateral Eye Normal Inspection, Bilateral Eye PERRL, Bilateral Eye EOMI Respiratory: No Accessory Muscle Use, No Respiratory Distress Cardiovascular: Regular Rate, Rhythm, Normal Peripheral Pulses Gastrointestinal: Normal Bowel Sounds, Non Tender, Soft Extremity: Normal Capillary Refill, Normal Inspection Neurologic/Psychiatric: Alert, Oriented x3 (Tangential conversation), Other Skin: Normal Color, Warm/Dry (DOV BRITTON APRN) Progress/Results/Core Measures Suspected Sepsis SIRS Temperature: Pulse: Respiratory Rate: Laboratory Tests 07/23/21 20:29: White Blood Count 8.4 Blood Pressure / Mean: Laboratory Tests 07/23/21 20:29: Platelet Count 438H (DOV BRITTON APRN) Results/Orders Lab Results Laboratory Tests Test 07/23/21 20:29 Range/Units White Blood Count 8.4 4.3-11.0 10^3/uL Red Blood Count 4.67 4.30-5.52 10^6/uL Hemoglobin 13.0 L 13.3-17.7 g/dL Hematocrit 40 40-54 % Mean Corpuscular Volume 85 80-99 fL Mean Corpuscular Hemoglobin 28 25-34 pg Mean Corpuscular Hemoglobin Concent 33 32-36 g/dL Red Cell Distribution Width 17.7 H 10.0-14.5 % Platelet Count 438 H 130-400 10^3/uL Mean Platelet Volume 10.0 9.0-12.2 fL Immature Granulocyte % (Auto) 0 % Neutrophils (%) (Auto) 60 42-75 % Lymphocytes (%) (Auto) 28 12-44 % Monocytes (%) (Auto) 11 0-12 % Eosinophils (%) (Auto) 1 0-10 % Basophils (%) (Auto) 0 0-10 % Neutrophils # (Auto) 5.0 1.8-7.8 10^3/uL Lymphocytes # (Auto) 2.4 1.0-4.0 10^3/uL Monocytes # (Auto) 1.0 0.0-1.0 10^3/uL Eosinophils # (Auto) 0.0 0.0-0.3 10^3/uL Basophils # (Auto) 0.0 0.0-0.1 10^3/uL Immature Granulocyte # (Auto) 0.0 0.0-0.1 10^3/uL Sodium Level 136 135-145 MMOL/L Potassium Level 3.8 3.6-5.0 MMOL/L Chloride Level 98 98-107 MMOL/L Carbon Dioxide Level 24 21-32 MMOL/L Anion Gap 14 5-14 MMOL/L Blood Urea Nitrogen 15 7-18 MG/DL Creatinine 0.70 0.60-1.30 MG/DL Estimat Glomerular Filtration Rate 118 BUN/Creatinine Ratio 21 Glucose Level 81 70-105 MG/DL Calcium Level 10.4 H 8.5-10.1 MG/DL Valproic Acid (Depakene) Level < 2.0 L 50.0-100.0 UG/ML (RANI JOYA DO) Vital Signs/I&O 07/23/21 07/23/21 07/23/21 20:15 20:15 20:59 Temp 35.9 35.9 35.9 Pulse 82 82 82 Resp 18 18 18 B/P (MAP) 165/96 (119) 165/96 165/96 Pulse Ox 97 97 97 O2 Delivery Room Air Room Air Room Air (RANI JOYA DO) Vital Signs/I&O Capillary Refill : (DOV BRITTON APRN) Departure Communication (Admissions) 2049-at this time patient is nowhere to be found and his belongings are gone. (DOV BRITTON APRN) Impression Primary Impression: Anxiety about health Disposition: 01 HOME, SELF-CARE Condition: Stable Departure-Patient Inst. Decision time for Depature: 20:08 (DOV BRITTON APRN) Referrals: [facility] (PCP/Family) Primary Care Physician Patient Instructions: NO INSTRUCTIONS GIVEN ATTENDING PHYSICIAN NOTE: I WAS PHYSICALLY PRESENT ER PHYSICIAN WHEN THIS PATIENT WAS IN ER, BUT I WAS NOT INVOLVED IN DECISION MAKING OR ANY CARE OF THIS PATIENT. (RANI JOYA DO) DOV BRITTON APRN Jul 23, 2021 20:08 RANI JOYA DO Jul 24, 2021 01:48
[2021-07-23 20:44] LABS: BASOPHILS % (AUTO) 0 % (0-10); EOSINOPHILS % (AUTO) 1 % (0-10); HEMATOCRIT 40 % (40-54); LYMPHOCYTES # (AUTO) 2.4 10^3/uL (1.0-4.0); LYMPHOCYTES % (AUTO) 28 % (12-44); MEAN CORPUSCULAR HEMOGLOBIN 28 pg (25-34); MEAN CORPUSCULAR HGB CONC 33 g/dL (32-36); MEAN CORPUSCULAR VOLUME 85 fL (80-99); MONOCYTES % (AUTO) 11 % (0-12); NEUTROPHILS % (AUTO) 60 % (42-75); PLATELET COUNT 438 10^3/uL (130-400); WHITE BLOOD COUNT 8.4 10^3/uL (4.3-11.0)
[2021-07-23 20:59] VITALS: BP 165/96
[2021-07-23 21:08] LABS: BUN/CREATININE RATIO 21; CALCIUM 10.4 MG/DL (8.5-10.1); CARBON DIOXIDE 24 MMOL/L (21-32); CHLORIDE 98 MMOL/L (98-107); GFR ESTIMATED 118; GLUCOSE 81 MG/DL (70-105); POTASSIUM 3.8 MMOL/L (3.6-5.0); SODIUM 136 MMOL/L (135-145)
[2021-07-23 21:17] LABS: VALPROIC ACID < 2.0 UG/ML (50.0-100.0)
== END 2021-07-23 21:08 | disposition home or self-care (01) ==
LOC: EDUNIT# 19:39 → ER 19:41
DX: F41.9 Anxiety disorder, unspecified (principal)
CPT/HCPCS: 36415; 80048; 80164; 85025

== ENCOUNTER 2021-07-25 01:53 | Emergency (ER) | payer MEDICARE ==
[~2021-07-25] VITALS: Ht 172.7 cm; Wt 81.6 kg
--- NOTE | 2021-07-25 02:24 | ED General ---
General Chief Complaint: General Problems/Pain Stated Complaint: UNABLE TO SLEEP Source of Information: Patient Exam Limitations: No Limitations History of Present Illness Date Seen by Provider: Jul 25, 2021 Time Seen by Provider: 02:12 Initial Comments Patient is a 51-year-old male who presents to the emergency department today with a chief complaint of needing his Depakote and Zyprexa. Patient states that he went to [facility] today with money but they would not give him his prescription, he states he thinks it is because "they are ass holes". He cannot give me a good reason why he was unable to fill his prescription. He goes through [facility] and [facility]. He is concerned that he might have a seizure. He states he has been up for 3 days unable to sleep. Denies any illness such as fevers, chills, cough or congestion. He is only asking for dose of his Zyprexa, 20 mg and a dose of Depakote, 1500 mg. No other complaints. He is very difficult to understand, pressured speech and mumbling speech. All other review of systems reviewed and negative except as stated. Associated Systoms: Denies Symptoms Allergies and Home Medications Allergies Coded Allergies: haloperidol (Verified Allergy, Unknown, 03/04/21) trifluoperazine (Verified Allergy, Unknown, 03/04/21) Patient Home Medication List Home Medication List Reviewed: Yes Hydrocodone/Acetaminophen (Hydrocodone-Acetamin 5-325 mg) 1 Each Tablet, 1 TAB PO Q4H PRN for PAIN-MODERATE (5-7) Prescribed by: DOV BRITTON on 03/10/21 1240 Hydrocodone/Acetaminophen (Hydrocodone-Acetamin 5-325 mg) 1 Each Tablet, 1 TAB PO Q4H PRN for PAIN-MODERATE (5-7) Prescribed by: DOV BRITTON on 05/31/21 1116 Leg Brace (Knee Brace) 1 Each Each, EACH [facility] NEEDED, (DME) Prescribed by: DOV BRITTON on 05/31/21 1117 Naproxen (Naprosyn) 500 Mg Tablet, 500 MG PO BID Prescribed by: ANIL MEJIAS on 05/27/21 192 Olanzapine (Zyprexa) 5 Mg Tablet, 5 MG PO DAILY Prescribed by: DOV BRITTON on 07/02/21 1351 Review of Systems Review of Systems Constitutional: see HPI, other (insomnia) EENTM: no symptoms reported Respiratory: no symptoms reported Cardiovascular: no symptoms reported Gastrointestinal: no symptoms reported Genitourinary: no symptoms reported Musculoskeletal: joint pain (chronic left knee pain) Skin: no symptoms reported Psychiatric/Neurological: Anxiety, Emotional Problems, Other (insomnia) All Other Systems Reviewed Negative Unless Noted: Yes Past Xfdhszn-Oyepru-Zzqbrs Hx Patient Social History Tobacco Use?: Yes Tobacco type used: Cigarettes E-Cig or Vaping type used: Nicotine Substance use?: No Alcohol Use?: No Immunizations Up To Date First/Initial COVID19 Vaccinat: unk Second COVID19 Vaccination Carl: unk Seasonal Allergies Seasonal Allergies: No Past Medical History Surgery/Hospitalization HX: schizophrenia Surgeries: Yes (HERNIA) Orthopedic Respiratory: No Cardiac: No Neurological: No Genitourinary: No Gastrointestinal: No Musculoskeletal: No Endocrine: No HEENT: No Cancer: No Psychosocial: Yes Physical Exam Vital Signs Vital Signs - First Documented 07/25/21 01:55 Temp 36.2 Pulse 86 Resp 16 B/P (MAP) 138/81 (100) Pulse Ox 95 O2 Delivery Room Air Capillary Refill : Height, Weight, BMI Height: '" Weight: lbs. oz. kg; 26.00 BMI Method: General Appearance: No Apparent Distress, WD/WN, Anxious Eyes: Bilateral Eye Normal Inspection, Bilateral Eye PERRL, Bilateral Eye EOMI HEENT: Other (poor dentition) Neck: Normal Inspection Respiratory: Lungs Clear, Normal Breath Sounds, No Accessory Muscle Use, No Respiratory Distress Cardiovascular: Regular Rate, Rhythm, Normal Peripheral Pulses Extremity: Normal Inspection, Swelling (left knee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 Skin: Normal Color, Warm/Dry Progress/Results/Core Measures Suspected Sepsis SIRS Temperature: Pulse: Respiratory Rate: Blood Pressure / Mean: Results/Orders My Orders Orders - KEVIN ROY MD Olanzapine Tablet (Zyprexa Tablet) (07/25/21 02:45) Divalproex Delay Release Tab (Depakote T (07/25/21 02:33) Vital Signs/I&O 07/25/21 01:55 Temp 36.2 Pulse 86 Resp 16 B/P (MAP) 138/81 (100) Pulse Ox 95 O2 Delivery Room Air Capillary Refill : Progress Note : Time: 02:39 Progress Note Patient here for a dose of his Zyprexa and depakote. states that he takes 20mg zyprexa at night and 1500mg of depakote. Im only going to give him 1000mg of depakote tonight and will give his 20mg of zyprexa - he states he will go and try to fill his meds again at [facility] tomorrow. He's having no significant symptoms requiring admission - denies ongoing hallucinations, is nervous he may have a seizure. Hes very difficult to understand with pressured speech and mumbling speech, but does not appear to be in any distress. He states he will go back to [facility] tomorrow and also follow with [facility] tomorrow. of note - was here 24 hours ago to have his "levels checked" but eloped from the department. No clinical or objective findings for other studies from the ER at this time. medically stable. will discharge to home. Departure Impression Primary Impression: Insomnia Qualified Codes: F51.05 - Insomnia due to other mental disorder; F99 - Mental disorder, not otherwise specified Additional Impression: Medication withdrawal Qualified Codes: F19.939 - Other psychoactive substance use, unspecified with withdrawal, unspecified Disposition: 01 HOME, SELF-CARE Condition: Stable Departure-Patient Inst. Decision time for Depature: 02:26 Referrals: [facility] (PCP/Family) Primary Care Physician Patient Instructions: Insomnia (DC) Add. Discharge Instructions: Please try and go to [facility] to refill your medications again tomorrow. Follow-up with [facility]. Return to the emergency department for any new, concerning or emergent complaints. KEVIN ROY MD Jul 25, 2021 02:24
[2021-07-25] MEDS ORDERED: DIVALPROEX 500 MG DELAYED RELEASE (DEPAKOTE) TAB PO STA (02:33)
[2021-07-25] MEDS ORDERED: OLANZapine 5 MG (ZyPREXA) TAB PO ONE (02:45)
[2021-07-25 02:58] VITALS: BP 138/81
== END 2021-07-25 02:58 | disposition home or self-care (01) ==
LOC: EDUNIT# 01:53 → ER 01:54
DX: G47.00 Insomnia, unspecified (principal); F19.239 Other psychoactive substance dependence with withdrawal, unspecified; F20.9 Schizophrenia, unspecified; Z72.0 Tobacco use; Z79.899 Other long term (current) drug therapy
CPT/HCPCS: 99283

== ENCOUNTER 2021-07-25 14:08 | Emergency (ER) | payer MEDICARE ==
[~2021-07-25] VITALS: Ht 172.7 cm; Wt 81.6 kg
--- NOTE | 2021-07-25 14:23 | ED Lower Extremity ---
General Chief Complaint: Lower Extremity Stated Complaint: L LEG SWELLING Nursing Triage Note: PT TO [facility] BY EMS WITH COMPLAINT OF LEFT KNEE SWELLING. Source: patient Exam Limitations: no limitations (DOV BRITTON APRN) History of Present Illness Date Seen by Provider: Jul 25, 2021 Time Seen by Provider: 14:19 Initial Comments To ER by ems from [facility] where he lives with c/o exacerbation of chronic left knee pain and swelling, no fevers or chills. Onset: just prior to arrival Severity: moderate Pain/Injury Location: left knee Method of Injury: unknown Modifying Factors: Worse With Movement (DOV BRITTON APRN) Allergies and Home Medications Allergies Coded Allergies: haloperidol (Verified Allergy, Unknown, 03/04/21) trifluoperazine (Verified Allergy, Unknown, 03/04/21) Patient Home Medication List Home Medication List Reviewed: Yes (DOV BRITTON APRN) Hydrocodone/Acetaminophen (Hydrocodone-Acetamin 5-325 mg) 1 Each Tablet, 1 TAB PO Q4H PRN for PAIN-MODERATE (5-7) Prescribed by: DOV BRITTON on 03/10/21 1240 Hydrocodone/Acetaminophen (Hydrocodone-Acetamin 5-325 mg) 1 Each Tablet, 1 TAB PO Q4H PRN for PAIN-MODERATE (5-7) Prescribed by: DOV BRITTON on 05/31/21 1116 Leg Brace (Knee Brace) 1 Each Each, EACH [facility] NEEDED, (DME) Prescribed by: DOV BRITTON on 05/31/21 1117 Naproxen (Naprosyn) 500 Mg Tablet, 500 MG PO BID Prescribed by: ANIL MEJIAS on 05/27/21 1923 Olanzapine (Zyprexa) 5 Mg Tablet, 5 MG PO DAILY Prescribed by: DOV BRITTON on 07/02/21 1351 Review of Systems Constitutional: see HPI; No chills, No fever EENTM: see HPI Respiratory: no symptoms reported Cardiovascular: no symptoms reported Genitourinary: no symptoms reported Musculoskeletal: no symptoms reported Skin: no symptoms reported Psychiatric/Neurological: No Symptoms Reported (DOV BRITTON APRN) Past Bfmpghz-Gkvgwj-Yharlq Hx Patient Social History Tobacco Use?: Yes Use of E-Cig and/or Vaping dev: No Substance use?: No Alcohol Use?: No Pt feels they are or have been: No (DOV BRITTON APRN) Immunizations Up To Date First/Initial COVID19 Vaccinat: unk Second COVID19 Vaccination Carl: unk (DOV BRITTON APRN) Seasonal Allergies Seasonal Allergies: No (DOV BRITTON APRN) Past Medical History Surgery/Hospitalization HX: schizophrenia Surgeries: Yes (HERNIA) Orthopedic Respiratory: No Cardiac: No Neurological: No Genitourinary: No Gastrointestinal: No Musculoskeletal: No Endocrine: No HEENT: No Cancer: No Psychosocial: Yes (DOV BRITTON APRN) Physical Exam Vital Signs Vital Signs - First Documented 07/25/21 14:08 Temp 36.0 Pulse 86 Resp 17 B/P (MAP) 143/102 (116) Pulse Ox 99 O2 Delivery Room Air (MAHNAZ,RANI [employer] DO) Vital Signs Capillary Refill : (DOV BRITTON APRN) Height, Weight, BMI Height: '" Weight: lbs. oz. kg; 27.00 BMI Method: General Appearance: WD/WN, no apparent distress HEENT: PERRL/EOMI, normal ENT inspection Respiratory: normal breath sounds, no respiratory distress, no accessory muscle use Hips: bilateral hip non-tender, bilateral hip normal inspection, bilateral hip normal range of motion Legs: bilateral leg non-tender, bilateral leg normal inspection, bilateral leg normal range of motion Knees: left knee pain, left knee soft tissue tenderness, left knee swelling Ankles: bilateral ankle non-tender, bilateral ankle normal inspection, bilateral ankle normal range of motion Feet: bilateral foot non-tender, bilateral foot normal inspection, bilateral foot normal range of motion Neurologic/Psychiatric: alert, normal mood/affect, oriented x 3 Skin: normal color, warm/dry (DOV BRITTON APRN) Procedures/Interventions Additional Procedures: Arthrocentesis Aspirating Progress anesthetized area superior and lateral to the superior/lateral border of the patella with 1ml of 1% lidocaine. 18 gauge needle then inserted and aspirated 44ml of clear yellow effluent with smal amount of debris. covered with bandaid. (DOV BRITTON APRN) Progress/Results/Core Measures Results/Orders Vital Signs/I&O 07/25/21 07/25/21 14:08 14:35 Temp 36.0 36.0 Pulse 86 86 Resp 17 17 B/P (MAP) 143/102 (116) 143/102 Pulse Ox 99 99 O2 Delivery Room Air Room Air (RANI JOYA DO) Blood Pressure Mean: 116 Departure Impression Primary Impression: Knee effusion, left Disposition: 01 HOME, SELF-CARE Condition: Stable Departure-Patient Inst. Decision time for Depature: 14:22 (DOV BRITTON APRN) Referrals: [facility] (PCP/Family) Primary Care Physician Patient Instructions: NO INSTRUCTIONS GIVEN Add. Discharge Instructions: 1. return to Er for any concerns 2. All discharge instructions reviewed with patient and/or family. Voiced understanding. ATTENDING PHYSICIAN NOTE: I WAS PHYSICALLY PRESENT ER PHYSICIAN WHEN THIS PATIENT WAS IN ER, BUT I WAS NOT INVOLVED IN DECISION MAKING OR ANY CARE OF THIS PATIENT. (RANI JOYA DO) DOV BRITTON APRN Jul 25, 2021 14:23 RANI JOYA DO Jul 27, 2021 20:19
[2021-07-25 14:35] VITALS: BP 143/102
== END 2021-07-25 14:35 | disposition home or self-care (01) ==
LOC: EDUNIT# 14:08 → ER 14:10
DX: M25.462 Effusion, left knee (principal); F20.9 Schizophrenia, unspecified; Z72.0 Tobacco use; Z79.899 Other long term (current) drug therapy
CPT/HCPCS: 99283

== ENCOUNTER 2021-07-25 23:40 | Emergency (ER) | payer MEDICARE ==
[~2021-07-25] VITALS: Ht 182 cm; Wt 77.0 kg
--- NOTE | 2021-07-26 01:12 | ED Lower Extremity ---
General Chief Complaint: Lower Extremity Stated Complaint: LEFT LEG PAIN Nursing Triage Note: Patient presented to the ER today with complaints of left leg pain. Patient denies injury to extremity. Source: patient Exam Limitations: no limitations History of Present Illness Date Seen by Provider: Jul 26, 2021 Time Seen by Provider: 01:12 Initial Comments Patient is a 51-year-old male who presents to the emergency room with a chief complaint of left knee pain. Patient states that "my knee locked up again". Reportedly was here about 2 PM this afternoon with complaints of similar symptoms and joint effusion. Dov Britton, nurse practitioner did an arthrocentesis of the left knee. Patient states he has not taken any medications for the discomfort. No trauma is reported. I saw him about 24 hours ago and he was unable to fill his antipsychotic medications but he states today he was able to get them filled. I reiterated to him that he needs to follow-up with [facility] and orthopedics. He verbalizes understanding. Will be given a pain pill and discharged home. Onset: other (chronic) Severity: severe Pain/Injury Location: left knee Method of Injury: unknown Modifying Factors: Improves With Immobilization; Worse With Movement; Improves With Pain Medication, Improves With Rest Allergies and Home Medications Allergies Coded Allergies: haloperidol (Verified Allergy, Unknown, 03/04/21) trifluoperazine (Verified Allergy, Unknown, 03/04/21) Patient Home Medication List Home Medication List Reviewed: Yes Hydrocodone/Acetaminophen (Hydrocodone-Acetamin 5-325 mg) 1 Each Tablet, 1 TAB PO Q4H PRN for PAIN-MODERATE (5-7) Prescribed by: DOV BRITTON on 03/10/21 1240 Hydrocodone/Acetaminophen (Hydrocodone-Acetamin 5-325 mg) 1 Each Tablet, 1 TAB PO Q4H PRN for PAIN-MODERATE (5-7) Prescribed by: DOV BRITTON on 05/31/21 1116 Leg Brace (Knee Brace) 1 Each Each, EACH [facility] NEEDED, (DME) Prescribed by: DOV BRITTON on 05/31/21 1117 Naproxen (Naprosyn) 500 Mg Tablet, 500 MG PO BID Prescribed by: ANIL MEJIAS on 05/27/21 1923 Olanzapine (Zyprexa) 5 Mg Tablet, 5 MG PO DAILY Prescribed by: DOV BRITTON on 07/02/21 1351 Review of Systems Constitutional: see HPI EENTM: no symptoms reported Respiratory: no symptoms reported Cardiovascular: no symptoms reported Gastrointestinal: no symptoms reported Genitourinary: no symptoms reported Musculoskeletal: joint pain (left knee) Skin: no symptoms reported Psychiatric/Neurological: Anxiety All Other Systems Reviewed Negative Unless Noted: Yes Past Ehwsghd-Uajqme-Bmuaps Hx Patient Social History Tobacco Use?: Yes Tobacco type used: Cigarettes Use of E-Cig and/or Vaping dev: No Substance use?: No Alcohol Use?: No Immunizations Up To Date First/Initial COVID19 Vaccinat: n/a Second COVID19 Vaccination Carl: n/a Seasonal Allergies Seasonal Allergies: No Past Medical History Surgery/Hospitalization HX: schizophrenia Surgeries: Yes (HERNIA) Orthopedic Respiratory: No Cardiac: No Neurological: No Genitourinary: No Gastrointestinal: No Musculoskeletal: No Endocrine: No HEENT: No Cancer: No Psychosocial: Yes Physical Exam Vital Signs Vital Signs - First Documented 07/25/21 23:45 Temp 36.1 Pulse 100 Resp 18 B/P (MAP) 172/96 (121) Pulse Ox 96 O2 Delivery Room Air Capillary Refill : Less Than 3 Seconds Height, Weight, BMI Height: '" Weight: lbs. oz. kg; 23.00 BMI Method: General Appearance: WD/WN, no apparent distress, other (resting/sleeping soundly on my arrival into the room) HEENT: PERRL/EOMI Cardiovascular: regular rate, rhythm Respiratory: lungs clear, normal breath sounds, no respiratory distress, no accessory muscle use Gastrointestinal: non tender, soft Knees: left knee joint effusion, left knee pain, left knee soft tissue tend erness, left knee swelling, left knee other (bandaid present left lateral knee) Neurologic/Tendon: normal sensation, normal motor functions, normal tendon functions Neurologic/Psychiatric: alert, normal mood/affect, oriented x 3 Skin: normal color, warm/dry Progress/Results/Core Measures Results/Orders My Orders Orders - KEVIN ROY MD Hydrocodone/Apap 7.5/325 Tab (Lortab 7. (07/26/21 02:15) Vital Signs/I&O 07/25/21 23:45 Temp 36.1 Pulse 100 Resp 18 B/P (MAP) 172/96 (121) Pulse Ox 96 O2 Delivery Room Air Blood Pressure Mean: 121 Departure Impression Primary Impression: Chronic pain of left knee Additional Impression: Effusion, left knee Disposition: HOME, SELF-CARE Condition: Stable Departure-Patient Inst. Decision time for Depature: 02:07 Referrals: [facility] (PCP/Family) Primary Care Physician Patient Instructions: Chronic Knee Pain (DC) Add. Discharge Instructions: take over the counter ibuprofen or alleve as needed for knee pain. always take this with food. Follow up with [facility]. You also need to see an ortho doctor for your knee. Keep taking your mental health meds as directed. come back to the ER for fever, increased pain with a red knee or any other emergent concerning symptoms. KEVIN ROY MD Jul 26, 2021 01:12
[2021-07-26 02:10] VITALS: BP 172/96
[2021-07-26] MEDS ORDERED: HYDROcodone/APAP 7.5 MG/325 MG (LORTAB, LORCET PLUS) TABLET PO ONE (02:15)
== END 2021-07-26 02:50 | disposition home or self-care (01) ==
LOC: EDUNIT# 23:40 → ER 23:44
DX: G89.29 Other chronic pain (principal); M25.462 Effusion, left knee; F20.9 Schizophrenia, unspecified; Z72.0 Tobacco use; Z79.899 Other long term (current) drug therapy
CPT/HCPCS: 99283

== ENCOUNTER 2021-07-26 18:38 | Emergency (ER) | payer MEDICARE ==
[~2021-07-26] VITALS: Ht 172.7 cm; Wt 86.2 kg
[2021-07-26 18:46] VITALS: BP 141/89
--- NOTE | 2021-07-26 18:54 | ED General ---
General Chief Complaint: General Problems/Pain Stated Complaint: MEDS Nursing Triage Note: PT AMBULATE TO TRIAGE WITH C/O NEEDING MEDS TO GET HIM THROUGH UNTIL HE CAN SEE [facility] ON WEDNESDAY. PT STATES HE IS NEEDING X3 DEPAKOTE. PT STATES HE IS SUPPOSED TO TAKE X3 500MG DEPAKOTE HOS. Source of Information: Patient Exam Limitations: No Limitations History of Present Illness Date Seen by Provider: Jul 26, 2021 Time Seen by Provider: 18:52 Initial Comments Homeless, needs his Depakote and Zyprexa. Severity: Moderate Associated Systoms: Denies Symptoms Allergies and Home Medications Allergies Coded Allergies: haloperidol (Verified Allergy, Unknown, 03/04/21) trifluoperazine (Verified Allergy, Unknown, 03/04/21) Patient Home Medication List Home Medication List Reviewed: Yes Hydrocodone/Acetaminophen (Hydrocodone-Acetamin 5-325 mg) 1 Each Tablet, 1 TAB PO Q4H PRN for PAIN-MODERATE (5-7) Prescribed by: DOV BRITTON on 03/10/21 1240 Hydrocodone/Acetaminophen (Hydrocodone-Acetamin 5-325 mg) 1 Each Tablet, 1 TAB PO Q4H PRN for PAIN-MODERATE (5-7) Prescribed by: DOV BRITTON on 05/31/21 1116 Leg Brace (Knee Brace) 1 Each Each, EACH MC NEEDED, (DME) Prescribed by: DOV BRITTON on 05/31/21 1117 Naproxen (Naprosyn) 500 Mg Tablet, 500 MG PO BID Prescribed by: ANIL MEJIAS on 05/27/21 1923 Olanzapine (Zyprexa) 5 Mg Tablet, 5 MG PO DAILY Prescribed by: DOV BRITTON on 07/02/21 1351 Review of Systems Review of Systems Constitutional: see HPI EENTM: see HPI Respiratory: no symptoms reported Cardiovascular: no symptoms reported Genitourinary: no symptoms reported Musculoskeletal: no symptoms reported Skin: no symptoms reported Psychiatric/Neurological: No Symptoms Reported Hematologic/Lymphatic: No Symptoms Reported Immunological/Allergic: no symptoms reported Past Tvlqqwj-Devtwt-Jiirsm Hx Immunizations Up To Date First/Initial COVID19 Vaccinat: n/a Second COVID19 Vaccination Carl: n/a Seasonal Allergies Seasonal Allergies: No Past Medical History Surgery/Hospitalization HX: schizophrenia Surgeries: Yes (HERNIA) Orthopedic Respiratory: No Cardiac: No Neurological: No Genitourinary: No Gastrointestinal: No Musculoskeletal: No Endocrine: No HEENT: No Cancer: No Psychosocial: Yes Physical Exam Vital Signs Vital Signs - First Documented 07/26/21 18:46 Temp 37.0 Pulse 94 Resp 18 B/P (MAP) 141/89 (106) O2 Delivery Room Air Capillary Refill : Less Than 3 Seconds Height, Weight, BMI Height: '" Weight: lbs. oz. kg; 28.00 BMI Method: General Appearance: No Apparent Distress, WD/WN Eyes: Bilateral Eye Normal Inspection, Bilateral Eye PERRL, Bilateral Eye EOMI Neck: Full Range of Motion, Normal Inspection Respiratory: No Accessory Muscle Use, No Respiratory Distress Cardiovascular: Regular Rate, Rhythm, Normal Peripheral Pulses Gastrointestinal: Normal Bowel Sounds, Non Tender, Soft Extremity: Normal Capillary Refill, Normal Inspection Neurologic/Psychiatric: Alert, Oriented x3 Skin: Normal Color, Warm/Dry Progress/Results/Core Measures Suspected Sepsis SIRS Temperature: Pulse: 94 Respiratory Rate: 18 Blood Pressure 141 /89 Mean: 106 Results/Orders Vital Signs/I&O 07/26/21 18:46 Temp 37.0 Pulse 94 Resp 18 B/P (MAP) 141/89 (106) O2 Delivery Room Air Capillary Refill : Less Than 3 Seconds Blood Pressure Mean: 106 Departure Impression Primary Impression: Medication refill Disposition: 01 HOME, SELF-CARE Condition: Stable Departure-Patient Inst. Decision time for Depature: 18:53 Referrals: [facility] (PCP/Family) Primary Care Physician Patient Instructions: NO INSTRUCTIONS GIVEN DOV BRITTON APRN Jul 26, 2021 18:54
[2021-07-26] MEDS ORDERED: OLANZapine 5 MG ODT (ZyPREXA ZYDIS) PO ONE (19:00)
[2021-07-26] MEDS ORDERED: DIVALPROEX EXT RELEASE 500 MG (DEPAKOTE ER) TAB PO SCH (19:00)
== END 2021-07-26 19:00 | disposition home or self-care (01) ==
LOC: EDUNIT# 18:38 → ER 18:39
DX: Z76.0 Encounter for issue of repeat prescription (principal); F20.9 Schizophrenia, unspecified; Z79.899 Other long term (current) drug therapy
CPT/HCPCS: 99283

== ENCOUNTER 2021-08-08 12:22 | Emergency (ER) | payer MEDICARE ==
[~2021-08-08] VITALS: Ht 172.7 cm; Wt 86.2 kg
[2021-08-08] MEDS ORDERED: methylPREDNISolone 40 MG/ML (DEPO MEDROL) VIAL IA ONE (13:15)
--- NOTE | 2021-08-08 13:20 | ED Lower Extremity ---
General Chief Complaint: Lower Extremity Stated Complaint: KNEE PAIN Nursing Triage Note: PT AMB TO [facility] 5 WITH COMPLAINT OF LEFT KNEE PAIN. Source: patient Exam Limitations: no limitations History of Present Illness Date Seen by Provider: Aug 08, 2021 Time Seen by Provider: 13:00 Initial Comments Patient to the ER by private conveyance from home with chief complaint that he has been having problems with his knee causing pain for the past 6 months. Has been told by his primary care office that he has osteoarthritis. He has had x- rays and joint aspirations. He got a injection of steroid in the past which really helped him and he would like another one. He is not diabetic. He is not on blood thinners and there is no trauma associate with his pain. It is worse in the morning and it takes him about 20 minutes of working before starts to feel better and he can walk on it. He is using compression, ice and NSAIDs Allergies and Home Medications Allergies Coded Allergies: haloperidol (Verified Allergy, Unknown, 03/04/21) trifluoperazine (Verified Allergy, Unknown, 03/04/21) Patient Home Medication List Home Medication List Reviewed: Yes Hydrocodone/Acetaminophen (Hydrocodone-Acetamin 5-325 mg) 1 Each Tablet, 1 TAB PO Q4H PRN for PAIN-MODERATE (5-7) Prescribed by: DOV BRITTON on 03/10/21 1240 Hydrocodone/Acetaminophen (Hydrocodone-Acetamin 5-325 mg) 1 Each Tablet, 1 TAB PO Q4H PRN for PAIN-MODERATE (5-7) Prescribed by: DOV BRITTON on 05/31/21 1116 Leg Brace (Knee Brace) 1 Each Each, EACH MC NEEDED, (DME) Prescribed by: DOV BRITTON on 05/31/21 1117 Naproxen (Naprosyn) 500 Mg Tablet, 500 MG PO BID Prescribed by: ANIL MEJIAS on 05/27/21 192 Olanzapine (Zyprexa) 5 Mg Tablet, 5 MG PO DAILY Prescribed by: DOV BRITTON on 07/02/21 1351 Review of Systems Constitutional: No chills, No diaphoresis EENTM: No ear discharge, No ear pain Respiratory: No cough, No short of breath Cardiovascular: No edema, No palpitations Gastrointestinal: No abdominal pain, No constipation Genitourinary: No discharge, No dysuria Musculoskeletal: see HPI; No back pain; joint pain Skin: No pruritus, No rash All Other Systems Reviewed Negative Unless Noted: Yes Past Kcwpbny-Vkgefr-Xmoolp Hx Patient Social History Tobacco Use?: No Use of E-Cig and/or Vaping dev: No Substance use?: No Alcohol Use?: No Pt feels they are or have been: No Immunizations Up To Date First/Initial COVID19 Vaccinat: n/a Second COVID19 Vaccination Carl: n/a Third COVID19 Vaccination Date: unk Seasonal Allergies Seasonal Allergies: No Past Medical History Surgery/Hospitalization HX: schizophrenia Surgeries: Yes (HERNIA) Orthopedic Respiratory: No Cardiac: No Neurological: No Genitourinary: No Gastrointestinal: No Musculoskeletal: No Endocrine: No HEENT: No Cancer: No Psychosocial: Yes Physical Exam Vital Signs Vital Signs - First Documented 08/08/21 13:03 Pulse 82 Resp 16 B/P (MAP) 170/98 (122) Pulse Ox 98 O2 Delivery Room Air Capillary Refill : Less Than 3 Seconds Height, Weight, BMI Height: '" Weight: lbs. oz. kg; 28.00 BMI Method: General Appearance: WD/WN, no apparent distress HEENT: PERRL/EOMI, pharynx normal Cardiovascular: normal peripheral pulses, regular rate, rhythm Respiratory: no respiratory distress, no accessory muscle use Hips: bilateral hip non-tender, bilateral hip normal inspection, bilateral hip normal range of motion, bilateral hip no evidence of injury Knees: right knee non-tender, right knee normal inspection; bilateral knee normal range of motion; right knee no evidence of injury; left knee bone tenderness (Anterior tibial tenderness to palpation without significant erythema or swelling.), left knee swelling Ankles: bilateral ankle non-tender, bilateral ankle normal inspection, bilateral ankle normal range of motion, bilateral ankle no evidence of injury Neurologic/Psychiatric: alert, normal mood/affect, oriented x 3 Skin: normal color, warm/dry Procedures/Interventions Progress Left knee aspiration and injection. An admixture of 1 cc of 40 mg/mL Depo- Medrol was mixed with 1/2 cc of lidocaine 1% without epinephrine and 1/2 cc of Marcaine half percent without epinephrine. Skin was thoroughly cleaned and abraded using chlorhexidine allowed to dry and then cleaned with alcohol and allowed to dry. We then made access using a 25-gauge 1-1/2 inch needle into the left knee using a medial anterior approach and Z track tension. We were able to aspirate about 2 cc of clear, straw-colored fluid. We then swapped syringes and put the admixture total of 2 cc of steroid, lidocaine and Marcaine into the knee without resistance. Patient tolerated the procedure well. After the needle was removed the skin was wiped with alcohol and a sterile bandage was applied. Progress/Results/Core Measures Results/Orders My Orders Orders - MIMI RICHARDSON Methylprednisolone Acetate Inj (Depo-Med (08/08/21 13:15) Vital Signs/I&O 08/08/21 13:03 Pulse 82 Resp 16 B/P (MAP) 170/98 (122) Pulse Ox 98 O2 Delivery Room Air Blood Pressure Mean: 122 Progress Progress Note : Time: 13:17 Progress Note Plan to inject with Marcaine, lidocaine and Depo-Medrol. Departure Impression Primary Impression: Unilateral primary osteoarthritis, left knee Disposition: HOME, SELF-CARE Condition: Stable Departure-Patient Inst. Decision time for Depature: 13:45 Referrals: [facility] (PCP/Family) Primary Care Physician Patient Instructions: Osteoarthritis (DC) Add. Discharge Instructions: Follow-up with your primary care doctor and discuss physical therapy and if not seeing improvement following up with an orthopedic surgeon. If you would like to set up an appointment with [facility] physical therapy for a no upfront charge evaluation you can call them at [phone]. Continue taking your pain medications as prescribed. Tylenol 1000 mg every 8 hours as necessary for pain. Expect to see some improvement over the next week. All discharge instructions reviewed with patient and/or family. Voiced understanding. Copy Copies To 1: BEATRIZ ZHU TITUS J Aug 08, 2021 13:20
[2021-08-08 13:51] VITALS: BP 170/98
== END 2021-08-08 13:51 | disposition home or self-care (01) ==
LOC: EDUNIT# 12:22 → ER 12:23
DX: M17.12 Unilateral primary osteoarthritis, left knee (principal)
CPT/HCPCS: 99281

== ENCOUNTER 2021-08-10 18:37 | Emergency (ER) | payer MEDICARE ==
[~2021-08-10] VITALS: Ht 172 cm; Wt 97.0 kg
[2021-08-10] MEDS ORDERED: KETOROLAC 60 MG/2 ML VIAL IM ONE (18:45)
--- NOTE | 2021-08-10 18:46 | ED Lower Extremity ---
General Chief Complaint: Lower Extremity Stated Complaint: L KNEE PAIN Source: patient Exam Limitations: no limitations History of Present Illness Date Seen by Provider: Aug 10, 2021 Time Seen by Provider: 18:44 Initial Comments To ER with left knee pain And swelling. Has chronic left knee effusion. Onset: just prior to arrival Severity: moderate Pain/Injury Location: left knee Method of Injury: unknown Modifying Factors: Worse With Movement Allergies and Home Medications Allergies Coded Allergies: haloperidol (Verified Allergy, Unknown, 03/04/21) trifluoperazine (Verified Allergy, Unknown, 03/04/21) Patient Home Medication List Home Medication List Reviewed: Yes Hydrocodone/Acetaminophen (Hydrocodone-Acetamin 5-325 mg) 1 Each Tablet, 1 TAB PO Q4H PRN for PAIN-MODERATE (5-7) Prescribed by: DOV BRITTON on 03/10/21 1240 Hydrocodone/Acetaminophen (Hydrocodone-Acetamin 5-325 mg) 1 Each Tablet, 1 TAB PO Q4H PRN for PAIN-MODERATE (5-7) Prescribed by: DOV BRITTON on 05/31/21 1116 Leg Brace (Knee Brace) 1 Each Each, EACH MC NEEDED, (DME) Prescribed by: DOV BRITTON on 05/31/21 1117 Naproxen (Naprosyn) 500 Mg Tablet, 500 MG PO BID Prescribed by: ANIL MEJIAS on 05/27/21 1923 Olanzapine (Zyprexa) 5 Mg Tablet, 5 MG PO DAILY Prescribed by: DOV BRITTON on 07/02/21 1351 Review of Systems Constitutional: see HPI EENTM: see HPI Respiratory: no symptoms reported Cardiovascular: no symptoms reported Genitourinary: no symptoms reported Skin: no symptoms reported Psychiatric/Neurological: No Symptoms Reported Past Dpidgkt-Oturno-Xianpl Hx Immunizations Up To Date First/Initial COVID19 Vaccinat: n/a Second COVID19 Vaccination Carl: n/a Third COVID19 Vaccination Date: unk Seasonal Allergies Seasonal Allergies: No Past Medical History Surgery/Hospitalization HX: schizophrenia Surgeries: Yes (HERNIA) Orthopedic Respiratory: No Cardiac: No Neurological: No Genitourinary: No Gastrointestinal: No Musculoskeletal: No Endocrine: No HEENT: No Cancer: No Psychosocial: Yes Physical Exam Vital Signs Capillary Refill : Height, Weight, BMI Height: '" Weight: lbs. oz. kg; 28.00 BMI Method: General Appearance: WD/WN, no apparent distress HEENT: PERRL/EOMI, normal ENT inspection Respiratory: no respiratory distress, no accessory muscle use Hips: bilateral hip non-tender, bilateral hip normal inspection, bilateral hip normal range of motion Legs: bilateral leg non-tender, bilateral leg normal inspection, bilateral leg normal range of motion Knees: left knee soft tissue tenderness Ankles: bilateral ankle non-tender, bilateral ankle normal inspection Neurologic/Psychiatric: alert, normal mood/affect, oriented x 3 Skin: normal color, warm/dry Progress/Results/Core Measures Results/Orders My Orders Orders - DOV BRITTON APRN Ketorolac Injection (Toradol Injection) (08/10/21 18:45) Departure Impression Primary Impression: Osteoarthritis of knee Disposition: 01 HOME, SELF-CARE Condition: Stable Departure-Patient Inst. Decision time for Depature: 18:46 Referrals: [facility] (PCP/Family) Primary Care Physician Patient Instructions: Chronic Knee Pain Add. Discharge Instructions: All discharge instructions reviewed with patient and/or family. Voiced understanding. DOV BRITTON APRN Aug 10, 2021 18:46
[2021-08-10 18:49] VITALS: BP 165/94
== END 2021-08-10 19:05 | disposition home or self-care (01) ==
LOC: EDUNIT# 18:37 → ER 18:39
DX: M17.12 Unilateral primary osteoarthritis, left knee (principal); F20.9 Schizophrenia, unspecified; Z79.899 Other long term (current) drug therapy
CPT/HCPCS: 99284

== ENCOUNTER 2021-08-28 13:02 | Emergency (ER) | payer MEDICARE ==
[~2021-08-28] VITALS: Ht 172 cm; Wt 91.0 kg
--- NOTE | 2021-08-28 13:30 | ED Lower Extremity ---
General Chief Complaint: Lower Extremity Stated Complaint: L KNEE PAIN Nursing Triage Note: PT ARRIVED PER [facility] W L KNEE PAIN, PT IS SEEN FREQUENTLY FOR SAME CO. Source: patient Exam Limitations: no limitations History of Present Illness Date Seen by Provider: Aug 28, 2021 Time Seen by Provider: 13:12 Initial Comments Patient ER by EMS with chief complaint acute falling because of weakness and pain in his left knee. He has had problems with chronic knee problems for many years and has been here recently to have his knees injected with steroids as well as drain. He feels that the swelling is worse again and it needs drain again. He was here 2 weeks ago and had a shot of Toradol. He had a dose of intra-articular steroids 2 weeks ago as well. He has an appointment to follow- up in 2 weeks with his primary care provider to address his knee pain at [facility]. He denies fever, redness drainage or new injuries. He is on naproxen Tylenol and has a knee splint. Allergies and Home Medications Allergies Coded Allergies: haloperidol (Verified Allergy, Unknown, 03/04/21) trifluoperazine (Verified Allergy, Unknown, 03/04/21) Patient Home Medication List Home Medication List Reviewed: Yes Hydrocodone/Acetaminophen (Hydrocodone-Acetamin 5-325 mg) 1 Each Tablet, 1 TAB PO Q4H PRN for PAIN-MODERATE (5-7) Prescribed by: DOV BRITTON on 03/10/21 1240 Hydrocodone/Acetaminophen (Hydrocodone-Acetamin 5-325 mg) 1 Each Tablet, 1 TAB PO Q4H PRN for PAIN-MODERATE (5-7) Prescribed by: DOV BRITTON on 05/31/21 1116 Leg Brace (Knee Brace) 1 Each Each, EACH MC NEEDED, (DME) Prescribed by: DOV BRITTON on 05/31/21 1117 Naproxen (Naprosyn) 500 Mg Tablet, 500 MG PO BID Prescribed by: ANIL MEJIAS on 05/27/21 192 Olanzapine (Zyprexa) 5 Mg Tablet, 5 MG PO DAILY Prescribed by: DOV BRITTON on 07/02/21 1351 Review of Systems Constitutional: No chills, No diaphoresis EENTM: No ear discharge, No ear pain Respiratory: No cough, No phlegm Cardiovascular: No chest pain, No palpitations Gastrointestinal: No abdominal pain, No constipation, No diarrhea Genitourinary: No discharge, No dysuria Musculoskeletal: see HPI; No back pain; joint pain All Other Systems Reviewed Negative Unless Noted: Yes Past Olfumkx-Ktkjgm-Itcwrv Hx Patient Social History Tobacco Use?: No Smoking Status: Current Everyday Smoker Substance use?: No Alcohol Use?: No Pt feels they are or have been: No Immunizations Up To Date First/Initial COVID19 Vaccinat: n/a Second COVID19 Vaccination Carl: MODERNA Third COVID19 Vaccination Date: unk Seasonal Allergies Seasonal Allergies: No Past Medical History Surgery/Hospitalization HX: schizophrenia Surgeries: Yes (HERNIA) Orthopedic Respiratory: No Cardiac: No Neurological: No Genitourinary: No Gastrointestinal: No Musculoskeletal: No Endocrine: No HEENT: No Cancer: No Psychosocial: Yes Physical Exam Vital Signs Vital Signs - First Documented 08/28/21 13:05 Temp 36.7 Pulse 79 Resp 18 B/P (MAP) 145/85 (105) Pulse Ox 96 Capillary Refill : Less Than 3 Seconds Height, Weight, BMI Height: '" Weight: lbs. oz. kg; 30.00 BMI Method: General Appearance: WD/WN, no apparent distress HEENT: PERRL/EOMI, pharynx normal Neck: full range of motion, normal inspection Cardiovascular: normal peripheral pulses, regular rate, rhythm Respiratory: no respiratory distress, no accessory muscle use Knees: right knee non-tender, right knee normal inspection; bilateral knee normal range of motion; right knee no evidence of injury; left knee joint effusion, left knee swelling Neurologic/Tendon: normal sensation, normal motor functions, normal tendon functions Neurologic/Psychiatric: alert, normal mood/affect, oriented x 3 Skin: normal color, warm/dry Procedures/Interventions Additional Procedures: Arthrocentesis Aspirating Progress Left knee has soft tissue swelling with pitting edema. In the upright seated position we used a medial anterior approach and an 18-gauge 1-1/2 inch needle. We cleaned the site with iodine and allowed to dry for 2 minutes. We then cleaned the site with alcohol and on sterile gloves and using sterile technique we placed the needle in the knee space. Were unable to aspirate any significant amount of fluid. Infiltrated 1 cc of 1% lidocaine and 1 cc of half percent Marcaine and remove the needle. Patient tolerated procedure well. Sterile clean dry bandage was placed. Patient was hemostatic. Progress/Results/Core Measures Results/Orders Vital Signs/I&O 08/28/21 13:05 Temp 36.7 Pulse 79 Resp 18 B/P (MAP) 145/85 (105) Pulse Ox 96 Blood Pressure Mean: 105 Progress Progress Note : Time: 13:49 Progress Note Patient is having some swelling around his knee likely related to his osteoarthritis. No evidence of significant intra-articular fluid. No effusion. He just had steroids 2 weeks ago. He has an appointment in 2 weeks with a primary care provider and we have encouraged him to follow-up there. He says he sporadically takes ibuprofen and takes Tylenol on a daily basis so we will put him on naproxen twice a day scheduled Departure Impression Primary Impression: Unilateral primary osteoarthritis, left knee Additional Impression: Falls Qualified Codes: W19.XXXA - Unspecified fall, initial encounter Disposition: HOME, SELF-CARE Condition: Stable Departure-Patient Inst. Decision time for Depature: 13:50 Referrals: [facility] (PCP/Family) Primary Care Physician Patient Instructions: Osteoarthritis (DC), Joint Pain Add. Discharge Instructions: Topical creams like icy hot or Biofreeze can be helpful for joint pain. Keep the knee wrapped with an Gilberto wrap, neoprene knee sleeve or similar compression bandage while awake to reduce swelling. Elevate the knee above the level of your heart while at rest to help reduce swelling. Tylenol 1000 mg every 8 hours as necessary for pain. Start a regimen of naproxen 500 mg twice a day for the next 4 weeks. If you start to have bad indigestion/acid reflux then stop the naproxen, take something for the indigestion and follow-up with your doctor. Keep your follow-up appointment. All discharge instructions reviewed with patient and/or family. Voiced understanding. Scripts Naproxen (Naprosyn) 500 Mg Tablet 500 MG PO BID for 30 Days, #60 TAB 0 Refills Prov: MIMI RICHARDSON 08/28/21 MIMI RICHARDSON Aug 28, 2021 13:30
[2021-08-28] MEDS ORDERED: NAPR-1071 PO (13:51)
[2021-08-28 14:03] VITALS: BP 145/85
== END 2021-08-28 14:03 | disposition home or self-care (01) ==
LOC: EDUNIT# 13:02 → ER 13:04
DX: M17.12 Unilateral primary osteoarthritis, left knee (principal); F20.9 Schizophrenia, unspecified; F17.290 Nicotine dependence, other tobacco product, uncomplicated; Z79.899 Other long term (current) drug therapy

== ENCOUNTER 2021-09-05 14:32 | Emergency (ER) | payer MEDICARE ==
[~2021-09-05] VITALS: Ht 172.7 cm; Wt 81.6 kg
[2021-09-05 14:39] VITALS: BP 129/86
[2021-09-05] MEDS ORDERED: OLANZapine 5 MG ODT (ZyPREXA ZYDIS) PO ONE (15:00)
[2021-09-05] MEDS ORDERED: DIVALPROEX EXT RELEASE 500 MG (DEPAKOTE ER) TAB PO SCH (15:00)
--- NOTE | 2021-09-05 15:04 | ED Upper Extremity ---
General Stated Complaint: KNEE PAIN Source: patient Exam Limitations: no limitations (DOV BRITTON APRN) History of Present Illness Date Seen by Provider: Sep 05, 2021 Time Seen by Provider: 15:00 Initial Comments To ER with c/o left knee pain which is a recurrent issue for him secondary to osteoarthritis. No fevers or chills. Has not ever follwed with orthopedics. Is also out of his depakote and zyprexa. Onset: just prior to arrival Severity: moderate Pain/Injury Location: left other (knee) Method of Injury: unknown Modifying Factors: Worse With Movement (DOV BRITTON APRN) Allergies and Home Medications Allergies Coded Allergies: haloperidol (Verified Allergy, Unknown, 03/04/21) trifluoperazine (Verified Allergy, Unknown, 03/04/21) Patient Home Medication List Home Medication List Reviewed: Yes (DOV BRITTON APRN) Hydrocodone/Acetaminophen (Hydrocodone-Acetamin 5-325 mg) 1 Each Tablet, 1 TAB PO Q4H PRN for PAIN-MODERATE (5-7) Prescribed by: DOV BRITTON on 03/10/21 1240 Hydrocodone/Acetaminophen (Hydrocodone-Acetamin 5-325 mg) 1 Each Tablet, 1 TAB PO Q4H PRN for PAIN-MODERATE (5-7) Prescribed by: DOV BRITTON on 05/31/21 1116 Leg Brace (Knee Brace) 1 Each Each, EACH MC NEEDED, (DME) Prescribed by: DOV BRITTON on 05/31/21 1117 Naproxen (Naprosyn) 500 Mg Tablet, 500 MG PO BID Prescribed by: ANIL MEJIAS on 05/27/21 1923 Naproxen (Naprosyn) 500 Mg Tablet, 500 MG PO BID Prescribed by: MIMI RICHARDSON on 08/28/21 1351 Olanzapine (Zyprexa) 5 Mg Tablet, 5 MG PO DAILY Prescribed by: DOV BRITTON on 07/02/21 1351 Review of Systems Constitutional: see HPI EENTM: see HPI Respiratory: no symptoms reported Cardiovascular: no symptoms reported Genitourinary: no symptoms reported Musculoskeletal: see HPI Skin: no symptoms reported Psychiatric/Neurological: No Symptoms Reported (DOV BRITTON APRN) Past Gbbrsxr-Dwnmrp-Dlduqg Hx Immunizations Up To Date First/Initial COVID19 Vaccinat: n/a Second COVID19 Vaccination Carl: MODERNA Third COVID19 Vaccination Date: unk (DOV BRITTON APRN) Seasonal Allergies Seasonal Allergies: No (DOV BRITTON APRN) Past Medical History Surgery/Hospitalization HX: schizophrenia Surgeries: Yes (HERNIA) Orthopedic Respiratory: No Cardiac: No Neurological: No Genitourinary: No Gastrointestinal: No Musculoskeletal: No Endocrine: No HEENT: No Cancer: No Psychosocial: Yes (DOV BRITTON APRN) Physical Exam Vital Signs Vital Signs - First Documented 09/05/21 14:39 Temp 37.0 Pulse 96 Resp 20 B/P (MAP) 129/86 (100) Pulse Ox 95 O2 Delivery Room Air (VERONICA HA MD) Vital Signs Capillary Refill : (DOV BRITTON APRN) Height, Weight, BMI Height: '" Weight: lbs. oz. kg; 30.00 BMI Method: General Appearance: WD/WN, no apparent distress Respiratory: no respiratory distress, no accessory muscle use Gastrointestinal: normal bowel sounds, non tender Shoulder: normal inspection, non-tender Elbow/Forearm: normal inspection, non-tender Wrist: Yes normal inspection, Yes non-tender Hand: normal inspection, non-tender Neurologic/Psychiatric: alert, normal mood/affect, oriented x 3 Skin: normal color, warm/dry Is a large palpable left knee effusion without erythema or ecchymosis. I identified an area superior and lateral to the superior lateral border of the patella. This was cleansed with Betadine swab which was allowed to dry then anesthetized with 1% lidocaine without epinephrine using a 27-gauge needle totaling 2 mL. Then was able to aspirate 30 mL of nura-colored synovial fluid out. (DOV BRITTON APRN) Departure Impression Primary Impression: Knee effusion, left Disposition: 01 HOME, SELF-CARE Condition: Stable Departure-Patient Inst. Decision time for Depature: 15:03 (DOV BRITTON APRN) Referrals: [facility] (PCP/Family) Primary Care Physician Patient Instructions: NO INSTRUCTIONS GIVEN Add. Discharge Instructions: 1. Return to ER for any concerns 2. Follow-up with your doctor next week ATTENDING PHYSICIAN NOTE: I was physically present as attending physician in the emergency department during the care of this patient, but I was not directly involved in the decision making or delivery of care for this patient. (VERONICA HA MD) DVO BRITTON APRN Sep 05, 2021 15:04 VERONICA HA MD Sep 06, 2021 20:02
== END 2021-09-05 15:25 | disposition home or self-care (01) ==
LOC: EDUNIT# 14:32 → ER 14:37
DX: M25.462 Effusion, left knee (principal); F20.9 Schizophrenia, unspecified; Z79.899 Other long term (current) drug therapy
CPT/HCPCS: 99283

== ENCOUNTER 2021-09-09 08:11 | Emergency (ER) | payer MEDICARE ==
[~2021-09-09] VITALS: Ht 172 cm; Wt 90.7 kg
--- NOTE | 2021-09-09 08:24 | ED Lower Extremity ---
General Chief Complaint: Lower Extremity Stated Complaint: L LEG PAIN Source: patient Exam Limitations: no limitations History of Present Illness Date Seen by Provider: Sep 09, 2021 Time Seen by Provider: 08:19 Initial Comments Shantanu is a 51-year-old male well-known to this emergency department who presents with chronic left knee pain. He states he is not been taking any ttxo-tbv-fkengaj ibuprofen, Aleve or Tylenol for his pain. Was recently here in the emergency department for 5 days ago and had aspiration of effusion from the left knee. He has not followed up with Ortho or [facility]. He is requesting "a pain shot". States that he does not get his EBT card until the third to be able to afford medications. States that he is compliant with his psych meds and has them with him. Denies any complaints of illness. All other review of systems reviewed and negative except as stated. Onset: other (chronic) Pain/Injury Location: left knee Allergies and Home Medications Allergies Coded Allergies: haloperidol (Verified Allergy, Unknown, 03/04/21) trifluoperazine (Verified Allergy, Unknown, 03/04/21) Patient Home Medication List Home Medication List Reviewed: Yes Hydrocodone/Acetaminophen (Hydrocodone-Acetamin 5-325 mg) 1 Each Tablet, 1 TAB PO Q4H PRN for PAIN-MODERATE (5-7) Prescribed by: DOV BRITTON on 03/10/21 1240 Hydrocodone/Acetaminophen (Hydrocodone-Acetamin 5-325 mg) 1 Each Tablet, 1 TAB PO Q4H PRN for PAIN-MODERATE (5-7) Prescribed by: DOV BRITTON on 05/31/21 1116 Leg Brace (Knee Brace) 1 Each Each, EACH [facility] NEEDED, (DME) Prescribed by: DOV BRITTON on 05/31/21 1117 Naproxen (Naprosyn) 500 Mg Tablet, 500 MG PO BID Prescribed by: ANIL MEJIAS on 05/27/21 192 Naproxen (Naprosyn) 500 Mg Tablet, 500 MG PO BID Prescribed by: MIMI RICHARDSON on 08/28/21 1351 Olanzapine (Zyprexa) 5 Mg Tablet, 5 MG PO DAILY Prescribed by: DOV BRITTON on 07/02/21 1351 Review of Systems Constitutional: see HPI EENTM: no symptoms reported Respiratory: no symptoms reported Cardiovascular: no symptoms reported Gastrointestinal: no symptoms reported Genitourinary: no symptoms reported Musculoskeletal: joint pain (chronic left knee pain) Skin: no symptoms reported All Other Systems Reviewed Negative Unless Noted: Yes Past Gozffbx-Nokvno-Yryock Hx Immunizations Up To Date First/Initial COVID19 Vaccinat: n/a Second COVID19 Vaccination Carl: MODERNA Third COVID19 Vaccination Date: unk Seasonal Allergies Seasonal Allergies: No Past Medical History Surgery/Hospitalization HX: schizophrenia Surgeries: Yes (HERNIA) Orthopedic Respiratory: No Cardiac: No Neurological: No Genitourinary: No Gastrointestinal: No Musculoskeletal: No Endocrine: No HEENT: No Cancer: No Psychosocial: Yes Physical Exam Vital Signs Capillary Refill : Height, Weight, BMI Height: '" Weight: lbs. oz. kg; 27.00 BMI Method: General Appearance: WD/WN, no apparent distress Cardiovascular: regular rate, rhythm, no murmur Respiratory: lungs clear, normal breath sounds, no respiratory distress, no accessory muscle use Hips: bilateral hip non-tender, bilateral hip normal inspection, bilateral hip normal range of motion, bilateral hip no evidence of injury Legs: bilateral leg non-tender, bilateral leg normal inspection, bilateral leg normal range of motion, bilateral leg no evidence of injury Knees: right knee non-tender, right knee normal inspection, right knee normal range of motion, right knee no evidence of injury, right knee bone tenderness; left knee joint effusion (mild), left knee soft tissue tenderness (mild) Ankles: bilateral ankle non-tender, bilateral ankle normal inspection, bilateral ankle normal range of motion, bilateral ankle no evidence of injury Feet: bilateral foot non-tender, bilateral foot normal inspection, bilateral foot normal range of motion, bilateral foot no evidence of injury Neurologic/Tendon: normal sensation, normal motor functions, normal tendon functions Neurologic/Psychiatric: alert, normal mood/affect, oriented x 3 Skin: normal color, warm/dry Departure Impression Primary Impression: Chronic pain of left knee Disposition: 01 HOME, SELF-CARE Condition: Stable Departure-Patient Inst. Decision time for Depature: 08:25 Referrals: [facility] (PCP/Family) Primary Care Physician Patient Instructions: Knee Pain Add. Discharge Instructions: Continue to wear your knee sleeve. Take rrbd-vro-jdlyykc ibuprofen 3 pills which is 600 mg every 6-8 hours with food as needed for pain. Follow-up with [facility] for pain management, anti-inflammatory prescriptions Return to the emergency room for any new, concerning or emergent complaints. KEVIN ROY MD Sep 09, 2021 08:24
[2021-09-09] MEDS ORDERED: NAPROXEN 250 MG (NAPROSYN) TABLET PO ONE (08:30)
[2021-09-09 08:32] VITALS: BP 137/79
== END 2021-09-09 08:29 | disposition home or self-care (01) ==
LOC: EDUNIT# 08:11 → ER 08:12
DX: G89.29 Other chronic pain (principal); M25.562 Pain in left knee; F20.9 Schizophrenia, unspecified; Z79.899 Other long term (current) drug therapy
CPT/HCPCS: 99283

== ENCOUNTER 2021-09-09 13:32 | Emergency (ER) | payer MEDICARE ==
[~2021-09-09] VITALS: Ht 172.1 cm; Wt 90.7 kg
--- NOTE | 2021-09-09 13:48 | ED Lower Extremity ---
General Chief Complaint: Lower Extremity Stated Complaint: KNEE PAIN Source: patient, EMS Exam Limitations: no limitations History of Present Illness Date Seen by Provider: Sep 09, 2021 Time Seen by Provider: 13:50 Initial Comments to ER by EMS for the second time today for ongoing left knee pain this is a chronic issue for him for which she has been seen many times and has failed to follow-up with orthopedics. He is a schizophrenic noncompliant with medications and he is homeless. He was given naproxen this morning but reports his knee still hurts. I just saw him 3 days ago and did arthrocentesis and we aspirated 30 mL of fluid off the knee again which she has done about every 2 weeks. Onset: just prior to arrival Severity: moderate Pain/Injury Location: left knee Method of Injury: unknown Modifying Factors: Worse With Movement Allergies and Home Medications Allergies Coded Allergies: haloperidol (Verified Allergy, Unknown, 03/04/21) trifluoperazine (Verified Allergy, Unknown, 03/04/21) Patient Home Medication List Home Medication List Reviewed: Yes Hydrocodone/Acetaminophen (Hydrocodone-Acetamin 5-325 mg) 1 Each Tablet, 1 TAB PO Q4H PRN for PAIN-MODERATE (5-7) Prescribed by: DOV BRITTON on 03/10/21 1240 Hydrocodone/Acetaminophen (Hydrocodone-Acetamin 5-325 mg) 1 Each Tablet, 1 TAB PO Q4H PRN for PAIN-MODERATE (5-7) Prescribed by: DOV BRITTON on 05/31/21 1116 Leg Brace (Knee Brace) 1 Each Each, EACH MC NEEDED, (DME) Prescribed by: DOV BRITTON on 05/31/21 1117 Naproxen (Naprosyn) 500 Mg Tablet, 500 MG PO BID Prescribed by: ANIL MEJIAS on 05/27/21 1923 Naproxen (Naprosyn) 500 Mg Tablet, 500 MG PO BID Prescribed by: MIMI RICHARDSON on 08/28/21 1351 Olanzapine (Zyprexa) 5 Mg Tablet, 5 MG PO DAILY Prescribed by: DOV BRITTON on 07/02/21 1351 Review of Systems Constitutional: see HPI EENTM: see HPI Respiratory: no symptoms reported Cardiovascular: no symptoms reported Genitourinary: no symptoms reported Musculoskeletal: see HPI Skin: no symptoms reported Psychiatric/Neurological: No Symptoms Reported Past Sbvevdb-Cqgtnj-Ufahzp Hx Immunizations Up To Date First/Initial COVID19 Vaccinat: JUN 2021 Second COVID19 Vaccination Carl: JUL 2021 Third COVID19 Vaccination Date: unk Seasonal Allergies Seasonal Allergies: No Past Medical History Surgery/Hospitalization HX: schizophrenia Surgeries: Yes (HERNIA) Orthopedic Respiratory: No Cardiac: No Neurological: No Genitourinary: No Gastrointestinal: No Musculoskeletal: No Endocrine: No HEENT: No Cancer: No Psychosocial: Yes Physical Exam Vital Signs Capillary Refill : Height, Weight, BMI Height: '" Weight: lbs. oz. kg; 30.00 BMI Method: General Appearance: WD/WN, no apparent distress, other (Ambulatory with his own crutch and already has a knee brace in place.) HEENT: PERRL/EOMI, normal ENT inspection Respiratory: no respiratory distress, no accessory muscle use Gastrointestinal: normal bowel sounds, non tender Hips: bilateral hip non-tender, bilateral hip normal inspection, bilateral hip normal range of motion Legs: bilateral leg non-tender, bilateral leg normal inspection, bilateral leg normal range of motion Knees: left knee pain, left knee soft tissue tenderness, left knee swelling Ankles: bilateral ankle non-tender, bilateral ankle normal inspection, bilateral ankle normal range of motion Feet: bilateral foot non-tender, bilateral foot normal inspection, bilateral foot normal range of motion Neurologic/Psychiatric: alert, normal mood/affect, oriented x 3 Skin: normal color, warm/dry Departure Impression Primary Impression: Chronic pain of left knee Disposition: 01 HOME, SELF-CARE Condition: Stable Departure-Patient Inst. Decision time for Depature: 13:47 Referrals: [facility] (PCP/Family) Primary Care Physician Patient Instructions: Chronic Knee Pain Add. Discharge Instructions: All discharge instructions reviewed with patient and/or family. Voiced understanding. DOV BRITTON THIRD SHIFT LIEUTENANT Sep 09, 2021 13:48
[2021-09-09 13:50] VITALS: BP 151/88
== END 2021-09-09 14:05 | disposition home or self-care (01) ==
LOC: ER 13:32
DX: G89.29 Other chronic pain (principal); M25.562 Pain in left knee; F20.9 Schizophrenia, unspecified; Z79.899 Other long term (current) drug therapy
CPT/HCPCS: 99283

== ENCOUNTER 2021-10-06 18:48 | Emergency (ER) | payer MEDICARE ==
[~2021-10-06] VITALS: Ht 172.1 cm; Wt 90.7 kg
--- NOTE | 2021-10-06 19:29 | ED Lower Extremity ---
General Chief Complaint: Lower Extremity Stated Complaint: KNEE PAIN/SWELLING Nursing Triage Note: Pt arrives via EMS from [place] for c/o left leg pain; pt seen in the ED mulitple times for similar c/o. Pt states he was seen at [facility] in [place] for this as well et it was recommended that he have his leg amputated but refused this course of treatment. Pt ambulatory with crutches on arrival. Source: patient Exam Limitations: no limitations History of Present Illness Date Seen by Provider: Oct 06, 2021 Time Seen by Provider: 19:25 Initial Comments To ER by EMS from [facility] with reports of ongoing left knee pain. States that he was seen at [facility] in [place] about 2 weeks ago and told he has an infection. He was given antibiotics which he states that he did take. He has a long history of recurrent left knee effusion, ongoing left leg swelling. He has failed to follow-up with anyone over the past year in regards to this. Onset: just prior to arrival Severity: moderate Pain/Injury Location: left leg, left knee Method of Injury: unknown Modifying Factors: Improves With Movement Allergies and Home Medications Allergies Coded Allergies: haloperidol (Verified Allergy, Unknown, 03/04/21) trifluoperazine (Verified Allergy, Unknown, 03/04/21) Patient Home Medication List Home Medication List Reviewed: Yes Hydrocodone/Acetaminophen (Hydrocodone-Acetamin 5-325 mg) 1 Each Tablet, 1 TAB PO Q4H PRN for PAIN-MODERATE (5-7) Prescribed by: DOV BRITTON on 03/10/21 1240 Hydrocodone/Acetaminophen (Hydrocodone-Acetamin 5-325 mg) 1 Each Tablet, 1 TAB PO Q4H PRN for PAIN-MODERATE (5-7) Prescribed by: DOV BRITTON on 05/31/21 1116 Leg Brace (Knee Brace) 1 Each Each, EACH MC NEEDED, (DME) Prescribed by: DOV BRITTON on 05/31/21 1117 Naproxen (Naprosyn) 500 Mg Tablet, 500 MG PO BID Prescribed by: ANIL MEJIAS on 05/27/211922 Naproxen (Naprosyn) 500 Mg Tablet, 500 MG PO BID Prescribed by: MIMI RICHARDSON on 08/28/21 1351 Olanzapine (Zyprexa) 5 Mg Tablet, 5 MG PO DAILY Prescribed by: DOV BRITTON on 07/02/21 5381 Review of Systems Constitutional: see HPI EENTM: see HPI Respiratory: no symptoms reported Cardiovascular: no symptoms reported Genitourinary: no symptoms reported Musculoskeletal: see HPI Skin: no symptoms reported Psychiatric/Neurological: No Symptoms Reported Past Tukebcw-Nzyssm-Qpjpdg Hx Patient Social History Alcohol Use?: No Pt feels they are or have been: No Immunizations Up To Date First/Initial COVID19 Vaccinat: 06/2021 Second COVID19 Vaccination Carl: 07/2021 Third COVID19 Vaccination Date: unk Seasonal Allergies Seasonal Allergies: No Past Medical History Surgery/Hospitalization HX: schizophrenia Surgeries: Yes (HERNIA) Orthopedic Respiratory: No Cardiac: No Neurological: No Genitourinary: No Gastrointestinal: No Musculoskeletal: No Endocrine: No HEENT: No Cancer: No Psychosocial: Yes Physical Exam Vital Signs Vital Signs - First Documented 10/06/21 19:15 Temp 36.8 Pulse 81 Resp 18 B/P (MAP) 137/79 (98) Pulse Ox 97 O2 Delivery Room Air Capillary Refill : Height, Weight, BMI Height: '" Weight: lbs. oz. kg; 30.00 BMI Method: General Appearance: WD/WN, no apparent distress HEENT: PERRL/EOMI, normal ENT inspection Respiratory: no respiratory distress, no accessory muscle use Hips: bilateral hip non-tender, bilateral hip normal inspection, bilateral hip normal range of motion Legs: left leg swelling, left leg other (Erythema to the medial left calf) Knees: left knee other (Palpable effusion left knee. Overlying skin is normal. He would like me to drain some fluid off so I did under sterile technique and got about 12 mL off. Less than usual.) Ankles: bilateral ankle non-tender, bilateral ankle normal inspection, bilateral ankle normal range of motion Feet: bilateral foot non-tender, bilateral foot normal inspection, bilateral foot normal range of motion Neurologic/Psychiatric: alert, normal mood/affect, oriented x 3 Skin: normal color, warm/dry Socks were removed, no edema of the foot. Edema from the knee to the ankle. No open wounds. Good pulse. Toes are warm. Progress/Results/Core Measures Results/Orders My Orders Orders - DOV BRITTON APRN Ketorolac Injection (Toradol Injection) (10/06/21 19:30) Vital Signs/I&O 10/06/21 19:15 Temp 36.8 Pulse 81 Resp 18 B/P (MAP) 137/79 (98) Pulse Ox 97 O2 Delivery Room Air Blood Pressure Mean: 98 Departure Impression Primary Impression: Effusion, left knee Disposition: HOME, SELF-CARE Condition: Stable Departure-Patient Inst. Decision time for Depature: 19:28 Referrals: [facility] (PCP/Family) Primary Care Physician Patient Instructions: Dependent Edema (DC) Add. Discharge Instructions: 1. Please follow-up with [facility] tomorrow to get an ultrasound of the left leg. Return to ER for any worsening. All discharge instructions reviewed with patient and/or family. Voiced understanding. DOV BRITTON [employer]ITEWATER RAFTING GUIDE Oct 06, 2021 19:29
[2021-10-06] MEDS ORDERED: KETOROLAC 60 MG/2 ML VIAL IM ONE (19:30)
[2021-10-06 19:43] VITALS: BP 137/79
== END 2021-10-06 19:46 | disposition home or self-care (01) ==
LOC: EDUNIT# 18:48 → ER 18:49
DX: M25.462 Effusion, left knee (principal); F20.9 Schizophrenia, unspecified; Z79.899 Other long term (current) drug therapy
CPT/HCPCS: 99284

== ENCOUNTER 2021-12-13 17:45 | Emergency (ER) | payer MEDICARE ==
[2021-12-13 17:45] VITALS: BP 126/80
[2021-12-13] MEDS ORDERED: fentaNYL INJ 100 MCG/2 ML AMP IVP STA (18:16)
--- NOTE | 2021-12-13 18:16 | ED Lower Extremity ---
General Chief Complaint: Lower Extremity Stated Complaint: LEFT KNEE PAIN Nursing Triage Note: Pt arrives via EMS from home for c/o left leg pain. Pt has been seen in ED multiple times for similar c/o. Source: patient Exam Limitations: no limitations History of Present Illness Date Seen by Provider: Dec 13, 2021 Time Seen by Provider: 18:15 Initial Comments Patient is a 51-year-old male presents ED with left knee pain and swelling. History of chronic pain with swelling. Denies any redness, warmth. Difficulty with flexion extension. Denies of any previous injury. Increased swelling over the past several days. Patient uses the crutches for support. Requesting Toradol shot Allergies and Home Medications Allergies Coded Allergies: haloperidol (Verified Allergy, Unknown, 03/04/21) trifluoperazine (Verified Allergy, Unknown, 03/04/21) Patient Home Medication List Home Medication List Reviewed: Yes Hydrocodone/Acetaminophen (Hydrocodone-Acetamin 5-325 mg) 1 Each Tablet, 1 TAB PO Q4H PRN for PAIN-MODERATE (5-7) Prescribed by: DOV BRITTON on 03/10/21 1240 Hydrocodone/Acetaminophen (Hydrocodone-Acetamin 5-325 mg) 1 Each Tablet, 1 TAB PO Q4H PRN for PAIN-MODERATE (5-7) Prescribed by: DOV BRITTON on 05/31/21 1116 Leg Brace (Knee Brace) 1 Each Each, EACH MC NEEDED, (DME) Prescribed by: DOV BRITTON on 05/31/21 1117 Naproxen (Naprosyn) 500 Mg Tablet, 500 MG PO BID Prescribed by: ANIL MEJIAS on 05/27/21 192 Naproxen (Naprosyn) 500 Mg Tablet, 500 MG PO BID Prescribed by: MIMI RICHARDSON on 08/28/21 1351 Olanzapine (Zyprexa) 5 Mg Tablet, 5 MG PO DAILY Prescribed by: DOV BRITTON on 07/02/21 1351 Review of Systems Constitutional: No chills, No diaphoresis, No malaise EENTM: No blurred vision, No double vision, No vision loss, No mouth pain Respiratory: No cough, No orthopnea, No short of breath Cardiovascular: No chest pain, No edema Gastrointestinal: No RUQ, No abdominal pain, No diarrhea, No nausea Genitourinary: No discharge, No frequency Musculoskeletal: joint pain, joint swelling Skin: No change in color, No change in hair/nails All Other Systems Reviewed Negative Unless Noted: Yes Past Omqdgrp-Cytfhx-Jghjzy Hx Patient Social History Tobacco Use?: Yes Tobacco type used: Cigarettes Use of E-Cig and/or Vaping dev: No Substance use?: Yes Alcohol Use?: No Pt feels they are or have been: No Immunizations Up To Date First/Initial COVID19 Vaccinat: 06/2021 Second COVID19 Vaccination Carl: 07/2021 Third COVID19 Vaccination Date: unk Seasonal Allergies Seasonal Allergies: No Past Medical History Surgery/Hospitalization HX: schizophrenia Surgeries: Yes (HERNIA) Orthopedic Respiratory: No Cardiac: No Neurological: No Genitourinary: No Gastrointestinal: No Musculoskeletal: No Endocrine: No HEENT: No Cancer: No Psychosocial: Yes Physical Exam Vital Signs Vital Signs - First Documented 12/13/21 17:45 Temp 36.7 Pulse 58 Resp 18 B/P (MAP) 126/80 (95) Pulse Ox 98 O2 Delivery Room Air Capillary Refill : Less Than 3 Seconds Height, Weight, BMI Height: '" Weight: lbs. oz. 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 Consent provided to patient for left knee joint aspiration. Marcaine 0.5% for males was used for local. Lateral approach to the left lateral knee. 30 mill of serous fluid was obtained. No bloody drainage. Patient tired procedure well.. Improvement of symptoms. Progress/Results/Core Measures Results/Orders My Orders Orders - AURA TORREZ Fentanyl Inj (Sublimaze Injection) (12/13/21 18:16) Ketorolac Injection (Toradol Injection) (12/13/21 18:30) Bupivacaine 0.5% Injection (Sensorcaine (12/13/21 18:30) Medications Given in ED Current Medications Medications Dose Ordered Sig/Loy Route Start Time Stop Time Status Last Admin Dose Admin Bupivacaine HCl 30 ml ONCE ONCE INJ 12/13/21 18:30 12/13/21 18:31 DC 12/13/21 18:25 30 ML Vital Signs/I&O 12/13/21 17:45 Temp 36.7 Pulse 58 Resp 18 B/P (MAP) 126/80 (95) Pulse Ox 98 O2 Delivery Room Air Blood Pressure Mean: 95 Departure Communication (Admissions) Lateral approach to the left knee with 30 mils of serous joint fluid was obtained. No erythema or warmth suggesting septic arthritis. Does have appropriate movement. Patient has been seen here multiple times for similar symptoms. Patient was given Toradol shot. Anti-inflammatories at home. Gilberto wrap. Recommend orthopedic outpatient follow-up. Impression Primary Impression: Knee pain Disposition: 01 HOME, SELF-CARE Condition: Stable Departure-Patient Inst. Decision time for Depature: 18:45 Referrals: [facility] (PCP/Family) Primary Care Physician Patient Instructions: Knee Pain ED AURA TORREZ Dec 13, 2021 18:16
[2021-12-13] MEDS ORDERED: KETOROLAC 30 MG/ML VIAL IVP ONE (18:30)
[2021-12-13] MEDS ORDERED: BUPIVACAINE 0.5% 30 ML (SENSORCAINE) VIAL INJ ONE (18:30)
[2021-12-13] MEDS ORDERED: KETOROLAC 60 MG/2 ML VIAL IM ONE (19:00)
== END 2021-12-13 19:30 | disposition home or self-care (01) ==
LOC: EDUNIT# 17:45 → ER 17:50
DX: M25.562 Pain in left knee (principal); Z72.0 Tobacco use
CPT/HCPCS: 99284

== ENCOUNTER 2022-03-06 22:35 | Emergency (ER) | payer MEDICARE ==
[~2022-03-06] VITALS: Ht 172.7 cm; Wt 65.0 kg
[2022-03-06] MEDS ORDERED: ACETAMINOPHEN 500 MG TAB (TYLENOL) PO PRN (22:45)
[2022-03-06] MEDS ORDERED: LACTATED RINGERS 1,000 ML IV ONE (22:45)
--- NOTE | 2022-03-06 23:32 | ED General ---
General Chief Complaint: General Problems/Pain Stated Complaint: PAIN EVERYWHERE Nursing Triage Note: PT ARRIVAL TO ER WITH COMPLAINT OF PAIN ALL OVER "FOR A WHILE". WHEN FURTHER ASKED ABOUT "FOR A WHILE", PATIENT STATES FOR A VERY LONG TIME, LIKE MONTHS. PT STATES THAT HE IS HOMELESS, AND ASKS ORANGE JUICE TO CALM HIM DOWN. Source of Information: Patient (SPEECH IS RAPID AND SOMEWHAT MUMBLED AND DIFFICULT TO UNDERSTAND AT TIMES) History of Present Illness Date Seen by Provider: March 06, 2022 Time Seen by Provider: 22:41 Initial Comments PT ARRIVES, WALKING IN WITH A SINGLE CRUTCH PT IS HOMELESS STATES HE HAS A "MESSED UP BODY" STATES HE HURTS ALL OVER ALL THE TIME--STATES THIS HAS BEEN GOING ON FOR MONTHS TO YEARS. PT IS WEARING AN ELASTIC KNEE BRACE ON LEFT KNEE AND USING A CRUTCH FOR THIS REASON--STATES HE HAS BURSITIS IN HIS LEFT KNEE AND IT IS ALWAYS SWOLLEN AND PAINFUL, AND HAS BEEN THIS WAY FOR MANY YEARS--STATES HE HAS NEVER SEEN AN ORTHOPEDIC DR FOR THIS OR ANY OTHER PROBLEM WITH BONES/JOINTS. NO RECENT INJURY OR UNUSUAL ACTIVITY. NONE OF THESE SYMPTOMS ARE ANY DIFFERENT TONIGHT IN ANY WAY (WEDNESDAY NIGHT /HOLIDAY WEEKEND) HAS NOT SOUGHT CARE AT ANY TIME FOR THESE PROBLEMS HAS NOT TAKEN ANYTHING FOR SYMPTOMS NO COUGH OR URI SYMPTOMS OR SORE THROAT NO DYSPNEA NO LOSS OF TASTE/SMELL NO HEADACHE NO FEVER-STATES HE SWEATS ALL THE TIME, AND IS NO DIFFERENT TODAY--PT IS WEARING MULTIPLE HEAVY LAYERS OF CLOTHING, INCLUDING SWEAT PANTS, SWEATSHIRT, TSHIRTS, AND A HEAVY WINTER COAT. WEATHER TODAY IS WARM AND VERY HUMID. NO GI SYMPTOMS PT IS WANTING SOMETHING TO EAT AND SOME ORANGE JUICE ON ARRIVAL. PT HAS NOT HAD COVID 19 VACCINE OR FLU VACCINE STATES HE DOES NOT TAKE ANY MEDICATIONS PT IS ESTABLISHED WITH [facility] [place] [facility] BUT NEVER GOES THERE OR ANYWHERE ELSE FOR ANY MEDICAL CARE PCP: [facility] Allergies and Home Medications Allergies Coded Allergies: haloperidol (Verified Allergy, Unknown, 03/04/21) trifluoperazine (Verified Allergy, Unknown, 03/04/21) Patient Home Medication List Home Medication List Reviewed: Yes Hydrocodone/Acetaminophen (Hydrocodone-Acetamin 5-325 mg) 1 Each Tablet, 1 TAB PO Q4H PRN for PAIN-MODERATE (5-7) Prescribed by: DOV BRITTON on 03/10/21 1240 Hydrocodone/Acetaminophen (Hydrocodone-Acetamin 5-325 mg) 1 Each Tablet, 1 TAB PO Q4H PRN for PAIN-MODERATE (5-7) Prescribed by: DOV BRITTON on 05/31/21 1116 Leg Brace (Knee Brace) 1 Each Each, EACH MC NEEDED, (DME) Prescribed by: DOV BRITTON on 05/31/21 1117 Naproxen (Naprosyn) 500 Mg Tablet, 500 MG PO BID Prescribed by: ANIL MEJIAS on 05/27/21 1923 Naproxen (Naprosyn) 500 Mg Tablet, 500 MG PO BID Prescribed by: MIMI RICHARDSON on 08/28/21 1351 Olanzapine (Zyprexa) 5 Mg Tablet, 5 MG PO DAILY Prescribed by: DOV BRITTON on 07/02/21 1351 Review of Systems Review of Systems Constitutional: see HPI EENTM: no symptoms reported Respiratory: no symptoms reported; No cough, No short of breath Cardiovascular: no symptoms reported; No chest pain Gastrointestinal: no symptoms reported Genitourinary: no symptoms reported Musculoskeletal: see HPI Skin: no symptoms reported Psychiatric/Neurological: No Symptoms Reported Hematologic/Lymphatic: No Symptoms Reported Immunological/Allergic: no symptoms reported Past Ijbjhnc-Lypwop-Esgkzc Hx Patient Social History Tobacco Use?: Yes (1 PPD) Tobacco type used: Cigarettes Smoking Status: Current Everyday Smoker Use of E-Cig and/or Vaping dev: No Substance use?: No Alcohol Use?: No Pt feels they are or have been: No Immunizations Up To Date Influenza Vaccine Up-to-Date: No; Not Current First/Initial COVID19 Vaccinat: 06/2021 Second COVID19 Vaccination Carl: 07/2021 Third COVID19 Vaccination Date: unk Seasonal Allergies Seasonal Allergies: No Past Medical History Surgery/Hospitalization HX: schizophrenia Surgeries: Yes (HERNIA) Abdominal Respiratory: No Cardiac: No Neurological: No Genitourinary: No Gastrointestinal: Yes (HERNIA REPAIR) Musculoskeletal: No Endocrine: No HEENT: No Cancer: No Psychosocial: Yes Schizophrenia Physical Exam Vital Signs Vital Signs - First Documented 03/06/22 22:52 Temp 37.2 Pulse 94 Resp 20 B/P (MAP) 153/94 (113) Pulse Ox 98 O2 Delivery Room Air Capillary Refill : Less Than 3 Seconds Height, Weight, BMI Height: '" Weight: lbs. oz. kg; 21.00 BMI Method: General Appearance: No Apparent Distress, WD/WN, Thin HEENT: PERRL/EOMI, TMs Normal, Normal ENT Inspection, Pharynx Normal, Moist Mucous Membranes Neck: Normal Inspection Respiratory: Normal Breath Sounds, No Accessory Muscle Use, No Respiratory Distress Cardiovascular: Regular Rate, Rhythm, No Murmur Gastrointestinal: Non Tender, Soft Back: Normal Inspection, No CVA Tenderness, No Vertebral Tenderness Extremity: Normal Capillary Refill, Other (LEFT KNEE WITH SIGNIFICANT SWELLING WITH EFFUSION, AND IS TENDER TO PALPATION. LIMITED ROM DUE TO PAIN. UNABLE TO DETERMINE LIGAMENT LAXITY DUE TO SWELLING AND PAIN. NO ERYTHEMA OR SORES/WOUNDS TO THE KNEE OR LEG. PT IS WEARING A VERY TIGHT ELASTIC KNEE BRACE TO LEFT KNEE, WITH 1+ SWELLING TO LOWER LEG BELOW THIS, BUT SWELLING DOES NOT EXTEND TO FOOT/ANKLE AREA. AND NO CALF TENDERNESS. NO CORDING, NEGATIVE JAIR'S. SENSORY/VASCULAR INTACT. RIGHT LEG WITH NORMAL EXAM. 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 Norm as Tested Skin: Normal Color, Warm/Dry Progress/Results/Core Measures Suspected Sepsis SIRS Temperature: Pulse: 94 Respiratory Rate: 20 Blood Pressure 153 /94 Mean: 113 Results/Orders Lab Results Laboratory Tests Test 03/06/22 22:45 Range/Units Influenza Type A (RT-PCR) Not Detected Not Detecte Influenza Type B (RT-PCR) Not Detected Not Detecte SARS-CoV-2 RNA (RT-PCR) Not Detected Not Detecte My Orders Orders - RANI JOYA DO Monitor-Rhythm Ecg Trace Only (03/06/22 22:45) Covid 19 Inhouse Test (03/06/22 22:45) Lactated Ringers (Lr 1000 Ml Iv Solution (03/06/22 22:45) Acetaminophen Tablet (Tylenol Tablet) (03/06/22 22:45) Vital Signs Adult Sepsis Patie Q15M (03/06/22 22:45) Influenza A And B By Pcr (03/06/22 22:45) Isolation Central Supply Req (03/06/22 22:45) Vital Signs/I&O 03/06/22 03/06/22 22:52 23:47 Temp 37.2 37.2 Pulse 94 86 Resp 20 20 B/P (MAP) 153/94 (113) 131/97 Pulse Ox 98 98 O2 Delivery Room Air Room Air Capillary Refill : Less Than 3 Seconds Blood Pressure Mean: 113 Progress Note : Progress Note PLACED IN ISOLATION ROOM PPE WORN COVID AND FLU TESTING DONE NONE OF PT'S COMPLAINTS ARE NEW, AND ARE CHRONIC FOR MONTHS TO YEARS WILL REFER PT TO ORTHOPEDIC SURGEON [facility] [facility]ATOR FOR CHRONIC KNEE PAIN AND SWELLING, AND ALSO TO [facility] FOR ROUTINE MEDICAL CARE. STRESSED THE IMPORTANCE OF THIS TO PATIENT. Departure Impression Primary Impression: Generalized pain Additional Impressions: Homelessness CHRONIC LEFT KNEE PAIN AND SWELLING Disposition: HOME, SELF-CARE Condition: Stable Departure-Patient Inst. Decision time for Depature: 23:31 Referrals: [facility] (PCP/Family) Primary Care Physician VERONICA FARNSWORTH MD Patient Instructions: CHRONIC PAIN, Chronic Knee Pain (DC) Add. Discharge Instructions: LOTS OF CLEAR LIQUIDS--WATER, BROTH, JELLO, GATORADE TYLENOL 1 GRAM / MOTRIN 800 MG 4 TIMES A DAY FOR PAIN ICE TO KNEE AT 20 MINUTE INTERVALS YOU MAY CONTINUE TO USE ELASTIC KNEE BRACE AND CRUTCH NEEDED FOR KNEE PAIN FOLLOW UP WITH DR. FARNSWORTH NEXT WEEK FOR YOUR KNEE PAIN, AND FOLLOW UP WITH [facility] NEXT WEEK FOR ROUTINE MEDICAL CARE All discharge instructions reviewed with patient and/or family. Voiced understanding. RANI JOYA DO March 06, 2022 23:32
[2022-03-06 23:47] VITALS: BP 131/97
== END 2022-03-06 23:47 | disposition home or self-care (01) ==
LOC: EDUNIT# 22:35 → ER 22:38
DX: R52 Pain, unspecified (principal); F17.210 Nicotine dependence, cigarettes, uncomplicated; Z59.00 Homelessness unspecified; Z20.822 Contact with and (suspected) exposure to COVID-19
CPT/HCPCS: 87636; 93041

== ENCOUNTER 2022-03-15 03:42 | Emergency (ER) | payer MEDICARE ==
--- NOTE | 2022-03-15 03:50 | ED Lower Extremity ---
General Chief Complaint: Lower Extremity Stated Complaint: KNEE PAIN Source: patient, EMS, old records History of Present Illness Date Seen by Provider: Mar 15, 2022 Time Seen by Provider: 03:40 Initial Comments PT ARRIVES VIA EMS PT IS HOMELESS, AND HAS BEEN FOR A LONG TIME PT WAS FOUND SLEEPING ON [address] BY [place] [employer] ( BY [facility] --PT WAS ASLEEP BY A TREE NEAR THE [address], [facility] CALLED EMS PT HAS CHRONIC LEFT KNEE PAIN AND SWELLING AND HAS BEEN THIS WAY FOR YEARS. PT USES ONE CRUTCH TO ASSIST WITH AMBULATION. HE ALSO HAS AN ELASTIC KNEE BRACE, BUT IS NOT WEARING IT AT THIS TIME. STATES IT IS IN HIS BAG. PT WAS SEEN HERE LAST WEEK FOR SIMILAR SITUATION. PT WAS REFERRED TO ORTHOPEDIC SURGEON, [facility] FOR ROUTINE MEDICAL CARE, PT HAS STATED THAT HE HAS NOT SEEN AN ORTHOPEDIC SURGEON OR ANYONE FOR PRIMARY CARE PT WAS ADVISED TO TAKE OVER THE COUNTER MEDICATIONS FOR HIS CHRONIC PAIN PT HAS DONE NONE OF THE ABOVE, HAS NOT MADE ANY ATTEMPT TO MAKE AN APPOINTMENT OR SIMPLY GO THE THE WALK IN CLINIC WITH [facility]. PT HAS NOT TAKEN ANYTHING OVER THE COUNTER FOR PAIN SYMPTOMS ARE NO DIFFERENT TONIGHT IN ANY WAY Allergies and Home Medications Allergies Coded Allergies: haloperidol (Verified Allergy, Unknown, 03/04/21) trifluoperazine (Verified Allergy, Unknown, 03/04/21) Patient Home Medication List Hydrocodone/Acetaminophen (Hydrocodone-Acetamin 5-325 mg) 1 Each Tablet, 1 TAB PO Q4H PRN for PAIN-MODERATE (5-7) Prescribed by: DOV BRITTON on 03/10/21 1240 Hydrocodone/Acetaminophen (Hydrocodone-Acetamin 5-325 mg) 1 Each Tablet, 1 TAB PO Q4H PRN for PAIN-MODERATE (5-7) Prescribed by: DOV BRITTON on 05/31/21 1116 Leg Brace (Knee Brace) 1 Each Each, EACH MC NEEDED, (DME) Prescribed by: DOV BRITTON on 05/31/21 1117 Naproxen (Naprosyn) 500 Mg Tablet, 500 MG PO BID Prescribed by: ANIL MEJIAS on 05/27/21 1923 Naproxen (Naprosyn) 500 Mg Tablet, 500 MG PO BID Prescribed by: MIMI RICHARDSON on 08/28/21 1351 Olanzapine (Zyprexa) 5 Mg Tablet, 5 MG PO DAILY Prescribed by: DOV BRITTON on 07/02/21 1351 Review of Systems Constitutional: no symptoms reported Musculoskeletal: see HPI Past Wxcfsjw-Yyucmr-Kcance Hx Immunizations Up To Date First/Initial COVID19 Vaccinat: 06/2021 Second COVID19 Vaccination Carl: 07/2021 Third COVID19 Vaccination Date: 06/2021 Seasonal Allergies Seasonal Allergies: No Past Medical History Surgery/Hospitalization HX: schizophrenia Surgeries: Yes (HERNIA) Abdominal Respiratory: No Cardiac: No Neurological: No Genitourinary: No Gastrointestinal: Yes (HERNIA REPAIR) Musculoskeletal: No Endocrine: No HEENT: No Cancer: No Psychosocial: Yes Schizophrenia Physical Exam Vital Signs Capillary Refill : Height, Weight, BMI Height: '" Weight: lbs. oz. kg; 21.00 BMI Method: General Appearance: WD/WN, no apparent distress, thin, other (UNKEMPT) HEENT: other (EDENTULOUS) Departure Impression Primary Impression: CHRONIC LEFT KNEE PAIN AND SWELLING Disposition: HOME, SELF-CARE Condition: Stable Departure-Patient Inst. Decision time for Depature: 03:48 Referrals: [facility] (PCP/Family) Primary Care Physician RAO DAVID MD,VERONICA ALONSO,XANDER Ross MD Patient Instructions: Chronic Knee Pain (DC) Add. Discharge Instructions: WRAP KNEE AND USE CRUTCH NEEDED TYLENOL 1 GRAM PLUS MOTRIN 600 MG 4 TIMES A DAY FOR PAIN FOLLOW UP [facility] FOR ROUTINE MEDICAL CARE AND FOLLOW UP WITH ORTHOPEDIC SURGEON ( LIST PROVIDED) FOR FURTHER CARE OF YOUR KNEE All discharge instructions reviewed with patient and/or family. Voiced u nderstanding. RANI JOYA DO Mar 15, 2022 03:50
[2022-03-15 04:00] VITALS: BP 136/84
== END 2022-03-15 04:00 | disposition home or self-care (01) ==
LOC: EDUNIT# 03:42 → ER 03:44
DX: M25.462 Effusion, left knee (principal)
CPT/HCPCS: 99283